=== PATIENT | male | born 1940 ===

== ENCOUNTER 2016-06-15 11:01 | Inpatient (IN) | payer OTHER, MEDICARE ==
[2016-06-15 11:26] LABS: BASO % 0.3 % (0-2); EOSINOPHIL ABSOLUTE COUNT 0.6 tho/cmm (0.0-0.7); HCT-HEMATOCRIT 31.5 % (36.0-53.5); HGB-HEMOGLOBIN 9.5 gm/dl (13.5-17.0); IMMATURE GRANULOCYTES ABSOLUTE 0.02 tho/cmm (0-0.03); IMMATURE GRANULOCYTES PERCENT 0.3 % (0-0.3); LYMPH % 21.7 % (20-45); LYMPH ABSOLUTE COUNT 1.6 tho/cmm (0.8-4.5); MCH (MEAN CORPUSCULAR HGB) 24.2 pg (28.0-32.0); MCHC MEAN CORPUSCULAR HGB CONC 30.2 % (32.0-36.0); MCV (MEAN CELL VOLUME) 80.4 fl (82.0-96.0); MEAN PLATELET VOLUME 9.5 cmc (9.4-12.4); MONO % 8.1 % (0-12); MONOCYTE ABSOLUTE COUNT 0.6 tho/cmm (0.0-1.2); NEUTROPHIL ABSOLUTE COUNT 4.6 tho/cmm (1.6-8.0); NEUTROPHIL-AUTOMATED 4.6 tho/cmm (1.6-8.0); NEUTROPHILS % 61.6 % (40-80); PLATELET COUNT 305 tho/cmm (150-450); RED BLOOD COUNT 3.92 mil/cmm (4.40-5.70); RED CELL DISTRIBUTION WIDTH 17.5 % (12.4-16.4); WHITE BLOOD COUNT 7.4 tho/cmm (4.0-10.0)
[2016-06-15 11:38] LABS: INR 1.8 INR (0.9-1.1); PROTHROMBIN TIME 21.6 SECONDS (9.0-13.6)
[2016-06-15 11:39] LABS: ALB/GLOB RATIO 0.8 (0.8-2.0); ALBUMIN 3.2 g/dl (3.5-5.2); ALKALINE PHOSPHATASE 95 U/L (40-129); ALT/SGPT 63 U/L (0-41); ANION GAP 12 mmol/L (5-15); AST/SGOT 30 U/L (0-40); BILIRUBIN,TOTAL 0.4 mg/dl (0.0-1.0); BLOOD UREA NITROGEN 15 mg/dl (6-25); CALCIUM 8.3 mg/dl (8.6-10.2); CARBON DIOXIDE-VENOUS 30 mmol/L (22-29); CHLORIDE 98 mmol/L (98-110); CREATININE 0.77 mg/dl (0.67-1.17); GLUCOSE 110 mg/dl (65-120); POTASSIUM 4.3 mmol/L (3.4-5.0); SODIUM 140 mmol/L (135-146); eGFR VALUE FOR BLACK >60 mL/Min
[2016-06-15 11:40] LABS: ABG CO2 ARTERIAL 34 mmol/L (21-27); ARTERIAL BLD GAS O2 SATURATION 96 % (95-98); ARTERIAL BLOOD GAS PCO2 49 mmHg (32-45); ARTERIAL PO2 79 mmHg (70-100); BICARBONATE 33 mmol/L (21-28); BLOOD GAS BASE EXCESS 8 mM/L (-/+3); PH 7.44 Units (7.35-7.45)
[2016-06-15] MEDS ORDERED: ACETAMINOPHEN325 M2 GT (12:04)
[2016-06-15] MEDS ORDERED: WARFARIN SODIUM3 M2 PO (12:08)
[2016-06-15] MEDS ORDERED: BISACODYL10 M1 RC ×2 (12:08)
[2016-06-15] MEDS ORDERED: CULTURELLE1 EAC1 GT (12:09)
[2016-06-15] MEDS ORDERED: COUGH SYRU100 MG/51 GT (12:10)
[2016-06-15] MEDS ORDERED: IPRAT-ALBUT 0.5-3 ML IH ×2 (12:12→12:13)
[2016-06-15 12:13] LABS: PROCALCITONIN 0.06 ng/ml (0.05-0.09)
[2016-06-15 12:21] LABS: URINE BILIRUBIN NEGATIVE (NEG); URINE BLOOD LARGE (NEG); URINE GLUCOSE (UA) NEGATIVE (NEG); URINE KETONE NEGATIVE (NEG); URINE LEUKOCYTE ESTERASE POSITIVE (NEG); URINE NITRITE NEGATIVE (NEG)
[2016-06-15 12:22] LABS: URINE APPEARANCE CLOUDY; URINE COLOR YELLOW; URINE SPECIFIC GRAVITY 1.021 (1.003-1.030)
[2016-06-15 12:29] LABS: URINE PROT SULFOSALICYLIC ACID TRACE (NEG); URINE RBC 20-30 /[HPF] (0-5); URINE WBC FULL FIELD /[HPF] (0-5)
[2016-06-15 12:30] LABS: URINE AMORPHOUS 3+; URINE MUCUS 3+
[2016-06-15] MEDS ORDERED: HUMALOG100 UNITS/ SC (12:31)
[2016-06-15] MEDS ORDERED: HYDROMORPHONE HC2 M1 GT (12:33)
[2016-06-15] MEDS ORDERED: MILK OF MAGNESIA GT (12:34)
[2016-06-15] MEDS ORDERED: LEVETIRACETAM GT (12:34)
[2016-06-15] MEDS ORDERED: ONDANSETRON ODT4 M1 GT (12:35)
[2016-06-15] MEDS ORDERED: PRILOSEC10 M3 GT (12:36)
[2016-06-15] MEDS ORDERED: SENNA PLUS TAB1 EAC1 GT (12:37)
[2016-06-15] MEDS ORDERED: EPINEPHRINE (12:42)
[2016-06-15] MEDS ORDERED: GLYCERIN1 EAC1 PR (12:44)
[2016-06-15] MEDS ORDERED: SANTYL30 G1 TP (12:44)
[2016-06-15] MEDS ORDERED: TRAMADOL HCL50 M2 GT (12:45)
[2016-06-15] MEDS ORDERED: SALINE NASAL SP30 M1 (12:45)
[2016-06-15] MEDS ORDERED: WARFARIN SODIUM5 M2 PO (12:47)
[2016-06-15] MEDS ORDERED: BISAC-EVAC10 MG RC (13:13)
[2016-06-17 06:37] LABS: BASO % 0.2 % (0-2); EOS % 5.9 % (0-7); EOSINOPHIL ABSOLUTE COUNT 0.3 tho/cmm (0.0-0.7); HCT-HEMATOCRIT 27.7 % (36.0-53.5); HGB-HEMOGLOBIN 8.4 gm/dl (13.5-17.0); IMMATURE GRANULOCYTES ABSOLUTE 0.01 tho/cmm (0-0.03); IMMATURE GRANULOCYTES PERCENT 0.2 % (0-0.3); LYMPH % 12.3 % (20-45); LYMPH ABSOLUTE COUNT 0.7 tho/cmm (0.8-4.5); MCH (MEAN CORPUSCULAR HGB) 24.4 pg (28.0-32.0); MCHC MEAN CORPUSCULAR HGB CONC 30.3 % (32.0-36.0); MCV (MEAN CELL VOLUME) 80.5 fl (82.0-96.0); MONO % 5.5 % (0-12); MONOCYTE ABSOLUTE COUNT 0.3 tho/cmm (0.0-1.2); NEUTROPHIL ABSOLUTE COUNT 4.3 tho/cmm (1.6-8.0); NEUTROPHIL-AUTOMATED 4.3 tho/cmm (1.6-8.0); NEUTROPHILS % 75.9 % (40-80); PLATELET COUNT 257 tho/cmm (150-450); RED BLOOD COUNT 3.44 mil/cmm (4.40-5.70); RED CELL DISTRIBUTION WIDTH 17.2 % (12.4-16.4); WHITE BLOOD COUNT 5.6 tho/cmm (4.0-10.0)
[2016-06-17 07:06] LABS: ANION GAP 12 mmol/L (5-15); BLOOD UREA NITROGEN 9 mg/dl (6-25); CALCIUM 8.2 mg/dl (8.6-10.2); CARBON DIOXIDE-VENOUS 26 mmol/L (22-29); CHLORIDE 106 mmol/L (98-110); GLUCOSE 106 mg/dl (65-120); POTASSIUM 3.8 mmol/L (3.4-5.0); SODIUM 144 mmol/L (135-146); eGFR VALUE FOR BLACK >60 mL/Min
[2016-06-17 07:11] LABS: INR 3.3 INR (0.9-1.1); PROTHROMBIN TIME 39.5 SECONDS (9.0-13.6)
[2016-06-18 05:52] LABS: BASO % 0.3 % (0-2); EOS % 8.8 % (0-7); EOSINOPHIL ABSOLUTE COUNT 0.3 tho/cmm (0.0-0.7); HCT-HEMATOCRIT 28.2 % (36.0-53.5); HGB-HEMOGLOBIN 8.4 gm/dl (13.5-17.0); IMMATURE GRANULOCYTES ABSOLUTE 0.01 tho/cmm (0-0.03); IMMATURE GRANULOCYTES PERCENT 0.3 % (0-0.3); LYMPH % 23.7 % (20-45); LYMPH ABSOLUTE COUNT 0.8 tho/cmm (0.8-4.5); MCH (MEAN CORPUSCULAR HGB) 24.2 pg (28.0-32.0); MCHC MEAN CORPUSCULAR HGB CONC 29.8 % (32.0-36.0); MCV (MEAN CELL VOLUME) 81.3 fl (82.0-96.0); MONO % 9.4 % (0-12); MONOCYTE ABSOLUTE COUNT 0.3 tho/cmm (0.0-1.2); NEUTROPHIL ABSOLUTE COUNT 1.9 tho/cmm (1.6-8.0); NEUTROPHIL-AUTOMATED 1.9 tho/cmm (1.6-8.0); NEUTROPHILS % 57.5 % (40-80); PLATELET COUNT 250 tho/cmm (150-450); RED BLOOD COUNT 3.47 mil/cmm (4.40-5.70); RED CELL DISTRIBUTION WIDTH 17.3 % (12.4-16.4); WHITE BLOOD COUNT 3.3 tho/cmm (4.0-10.0)
[2016-06-18 06:09] LABS: INR 3.7 INR (0.9-1.1); PROTHROMBIN TIME 44.3 SECONDS (9.0-13.6)
[2016-06-18 06:12] LABS: ANION GAP 11 mmol/L (5-15); BLOOD UREA NITROGEN 7 mg/dl (6-25); CALCIUM 8.2 mg/dl (8.6-10.2); CARBON DIOXIDE-VENOUS 26 mmol/L (22-29); CHLORIDE 115 mmol/L (98-110); CREATININE 0.61 mg/dl (0.67-1.17); GLUCOSE 138 mg/dl (65-120); POTASSIUM 3.5 mmol/L (3.4-5.0); eGFR VALUE FOR BLACK >60 mL/Min
[2016-06-18 06:15] LABS: SODIUM 152 mmol/L (135-146)
[2016-06-19 05:48] LABS: BASO % 0.2 % (0-2); EOS % 6.6 % (0-7); EOSINOPHIL ABSOLUTE COUNT 0.3 tho/cmm (0.0-0.7); HGB-HEMOGLOBIN 8.4 gm/dl (13.5-17.0); IMMATURE GRANULOCYTES ABSOLUTE 0.01 tho/cmm (0-0.03); IMMATURE GRANULOCYTES PERCENT 0.2 % (0-0.3); LYMPH % 20.4 % (20-45); LYMPH ABSOLUTE COUNT 0.8 tho/cmm (0.8-4.5); MCH (MEAN CORPUSCULAR HGB) 23.7 pg (28.0-32.0); MCV (MEAN CELL VOLUME) 81.9 fl (82.0-96.0); MONO % 6.1 % (0-12); MONOCYTE ABSOLUTE COUNT 0.3 tho/cmm (0.0-1.2); NEUTROPHIL ABSOLUTE COUNT 2.7 tho/cmm (1.6-8.0); NEUTROPHIL-AUTOMATED 2.7 tho/cmm (1.6-8.0); NEUTROPHILS % 66.5 % (40-80); PLATELET COUNT 269 tho/cmm (150-450); RED BLOOD COUNT 3.54 mil/cmm (4.40-5.70); RED CELL DISTRIBUTION WIDTH 17.5 % (12.4-16.4); WHITE BLOOD COUNT 4.1 tho/cmm (4.0-10.0)
[2016-06-19 06:01] LABS: ANION GAP 10 mmol/L (5-15); BLOOD UREA NITROGEN 8 mg/dl (6-25); CARBON DIOXIDE-VENOUS 30 mmol/L (22-29); CHLORIDE 115 mmol/L (98-110); CREATININE 0.64 mg/dl (0.67-1.17); GLUCOSE 135 mg/dl (65-120); POTASSIUM 3.2 mmol/L (3.4-5.0); SODIUM 155 mmol/L (135-146); eGFR VALUE FOR BLACK >60 mL/Min
[2016-06-20 06:18] LABS: ANION GAP 9 mmol/L (5-15); BLOOD UREA NITROGEN 11 mg/dl (6-25); CALCIUM 8.2 mg/dl (8.6-10.2); CARBON DIOXIDE-VENOUS 33 mmol/L (22-29); CHLORIDE 110 mmol/L (98-110); CREATININE 0.73 mg/dl (0.67-1.17); GLUCOSE 137 mg/dl (65-120); POTASSIUM 3.3 mmol/L (3.4-5.0); SODIUM 152 mmol/L (135-146); eGFR VALUE FOR BLACK >60 mL/Min
[2016-06-20 06:31] LABS: PROTHROMBIN TIME 25.7 SECONDS (9.0-13.6)
[2016-06-20 06:32] LABS: INR 2.2 INR (0.9-1.1)
[2016-06-21 11:02] LABS: BASO % 0.2 % (0-2); EOS % 6.4 % (0-7); EOSINOPHIL ABSOLUTE COUNT 0.4 tho/cmm (0.0-0.7); HCT-HEMATOCRIT 29.5 % (36.0-53.5); HGB-HEMOGLOBIN 8.7 gm/dl (13.5-17.0); IMMATURE GRANULOCYTES ABSOLUTE 0.02 tho/cmm (0-0.03); IMMATURE GRANULOCYTES PERCENT 0.3 % (0-0.3); LYMPH % 19.6 % (20-45); LYMPH ABSOLUTE COUNT 1.2 tho/cmm (0.8-4.5); MCH (MEAN CORPUSCULAR HGB) 24.2 pg (28.0-32.0); MCHC MEAN CORPUSCULAR HGB CONC 29.5 % (32.0-36.0); MCV (MEAN CELL VOLUME) 82.2 fl (82.0-96.0); MEAN PLATELET VOLUME 9.5 cmc (9.4-12.4); MONO % 5.2 % (0-12); MONOCYTE ABSOLUTE COUNT 0.3 tho/cmm (0.0-1.2); NEUTROPHIL ABSOLUTE COUNT 4.2 tho/cmm (1.6-8.0); NEUTROPHIL-AUTOMATED 4.2 tho/cmm (1.6-8.0); NEUTROPHILS % 68.3 % (40-80); PLATELET COUNT 247 tho/cmm (150-450); RED BLOOD COUNT 3.59 mil/cmm (4.40-5.70); RED CELL DISTRIBUTION WIDTH 18.2 % (12.4-16.4); WHITE BLOOD COUNT 6.1 tho/cmm (4.0-10.0)
[2016-06-21 11:15] LABS: ANION GAP 7 mmol/L (5-15); BLOOD UREA NITROGEN 12 mg/dl (6-25); CALCIUM 8.6 mg/dl (8.6-10.2); CARBON DIOXIDE-VENOUS 33 mmol/L (22-29); CHLORIDE 111 mmol/L (98-110); CREATININE 0.67 mg/dl (0.67-1.17); GLUCOSE 148 mg/dl (65-120); POTASSIUM 3.7 mmol/L (3.4-5.0); SODIUM 151 mmol/L (135-146); eGFR VALUE FOR BLACK >60 mL/Min
[2016-06-23 05:47] LABS: INR 1.2 INR (0.9-1.1)
[2016-06-23] MEDS ORDERED: SENNA PO (07:52)
[2016-06-23] MEDS ORDERED: FAMOTIDINE20 M3 PO (07:53)
[2016-06-24 06:18] LABS: INR 1.2 INR (0.9-1.1); PROTHROMBIN TIME 14.4 SECONDS (9.0-13.6)
[2016-06-25 06:52] LABS: INR 1.4 INR (0.9-1.1)
[2016-06-26 05:58] LABS: INR 1.5 INR (0.9-1.1); PROTHROMBIN TIME 18.2 SECONDS (9.0-13.6)
--- NOTE | 2016-06-26 16:23 | NUR ---
REG, RN CALLED TO INDICATE THAT PT'S FAMILY WAS HERE AND VERY UPSET. FAMILY ASKED WHY PT DIDN'T HAVE HIS HEARING AIDS IN. NO HEARING AIDS LISTED ON PT BELONGING LIST FROM ADMISSION. PER PCU NURSE WHO TRANSFERRED PT 06/25, PT HAD NO HEARING AIDS IN. NOTIFIED FAMILY THAT PT DID NOT COME TO HOSPITAL WITH HEARING AIDS. PT'S BROTHER VERBALIZED UNDERSTANDING AND STATED THAT HE WOULD CHECK AT THE PREVIOUS FACILITY. PT'S NIECE GURDEEP ASKED ABOUT ISOLATION, TOOK PICTURES OF ISOLATION AIRPORT MAINTENANCE CHIEF AND OTHER ITEMS IN THE PT'S ROOM. NIECE STATED THAT IF PT HAD HIS HEARING AIDS HE WOULD BE ABLE TO WAKE UP. ASKED NIECE IF SHE HAD BEEN IN CONTACT WITH DASH, PT'S DTR AND POA. SHE SAID SHE HAD NOT, AND WE ADVISED HER TO CONTACT DASH, WHO HAD BEEN IN DISCUSSIONS WITH HOSPITAL SOCIAL WORKERS ABOUT PT'S STAY AND TRANSFER TO ANOTHER FACILITY. NIAIDAN ASKED WHY PT WAS IN THE HOSPITAL, AND WE STATED THAT HE CAME IN WITH A FEVER ON 06/15. NIECE ASKED IF ANYONE AT THIS FACILITY WAS GOING TO MAKE PT STOP BREATHING BY COVERING HIS FACE. SHE EXPRESSED CONCERN THAT HE MIGHT TRANSFER TO A FACILITY WHERE THAT WAS PERMITTED. WE REASSURED HER VERY CLEARLY THAT SUCH ACTIONS WERE ILLEGAL AND NOT PERMITTED AT THIS OR ANY OTHER FACILITY. I EXPLAINED IN GENERAL TERMS HOW A CODE STATUS OF DNR DIFFERED FROM THE ACTIVE HASTENING OF THAT SHE WAS DESCRIBING. SHE AGAIN STATED THAT SHE BELIEVED HE WOULD WAKE UP AND ASKED US WHETHER WE THOUGHT THAT WAS POSSIBLE. I TOLD HER THAT IT WAS IMPOSSIBLE TO SAY WITH CERTAINTY. WHEN SHE PRESSED THE ISSUE, I POINTED OUT THAT GIVEN HOW LONG HE HAD BEEN IN THIS CONDITION, WAKING UP WAS NOT LIKELY. SHE STATED, "GOD DOES MIRACLES EVERY DAY." WE AGREED AND ADVISED HER TO MAINTAIN HOPE AND TO BE PREPARED FOR ANY OUTCOME. WE EXPRESSED SYMPATHY FOR THE DIFFICULT SITUATION IN WHICH SHE AND HER FAMILY FOUND THEMSELVES. SHE STATED THAT SHE DIDN'T WANT TO IMPLY THAT ANYONE HERE WAS NOT PROVIDING GOOD CARE. WE AGAIN ADVISED HER TO CONTACT DASH FOR MORE DETAILS.
--- NOTE | 2016-06-26 18:12 | NUR ---
THE PATIENT HAD BEEN TRANSFERRED FROM [facility] TO [facility] ON 06/25 IN THE AFTERNOON. NO FAMILY WAS PRESENT ON PCU WITH THE PATIENT AND NO FAMILY OR VISITORS WERE PRESENT ON 06/25 ON [facility]. ON 06/26 AROUND 1500 THE PATIENT'S BROTHER, TOMMIE AND FRIEND GURDEEP CAME TO VISIT. UPON VISITING THEY ENTERED THE PATIENT'S ROOM AND WERE VERY UPSET THAT THE PATIENT DID NOT HAVE HEARING AIDS IN. THERE IS DOCUMENTATION IN THE CHART THAT THE PATIENT DID NOT COME WITH ANY BELONGINGS. THIS WAS EXPLAINED TO THE PATIENT'S VISITORS. TOMMIE LEFT AND RETURNED WITH THE PATIENT'S BELONGINGS AND HEARING AIDES WHILE GURDEEP STAYED AT THE BEDSIDE. THE PATIENT IS IN A VEGETATIVE STATE AND ACCORDING TO THE DOCTORS HE IS NOT LIKELY TO WAKE UP. SOME OF THE PATIENT'S FAMILY BELIEVE THE PATIENT IS GOING TO WAKE UP. GURDEEP WAS AT THE BEDSIDE YELLING AT THE PATIENT TELLING HIM TO WAKE UP. SHE THEN STARTED TAKING PICTURES OF STUFF IN THE PATIENT'S ROOM AND WAS YELLING AT STAFF AND ACCUSSING US OF LOSING HIS BELONGINGS. WE TRIED TO EXPLAIN TO GURDEEP THAT THE PATIENT IS NOT IN DISTRESS AND THAT IS WHY WE ARE NOT GIVING HIM SCHEDULED PAIN MEDS. SHE THEN PROCEEDED TO TRY AND STRAIGHTEN THE PATIENT'S FINGER ON THE R HAND THAT SHE TOLD US WERE OBOVIOUSLY BROKEN AND WE NEEDED TO XRAY THEM RIGHT AWAY. WE EXPLAINED TO GURDEEP THAT WE WILL TALK WITH THE DOCTOR ON HER CONCERNS ABOUT PAIN MEDICATION AND HIS FINGER. GURDEEP AND TOMMIE LEFT FOR DINNER AND I CALLED THE POA, DASH, AND DISCUSSED THE SITUATION. SHE TOLD ME THAT GURDEEP CAN VISIT WITH TOMMIE BUT THEY CANNOT MAKE ANY DECISIONS FOR THE PATIENT. DASH ALSO SAID THAT IF GURDEEP IS DISRUPTIVE SHE NEEDS TO LEAVE. SECURITY WAS NOTIFIED AND TALKED WITH TOMMIE AND GURDEEP. THEY THEN LEFT AND TOLD ME THEY WERE NOT COMING BACK AND WERE VERY UPSET.
[2016-06-27 06:01] LABS: INR 1.7 INR (0.9-1.1); PROTHROMBIN TIME 20.3 SECONDS (9.0-13.6)
[2016-06-27 06:14] LABS: ANION GAP 11 mmol/L (5-15); BLOOD UREA NITROGEN 16 mg/dl (6-25); CARBON DIOXIDE-VENOUS 30 mmol/L (22-29); CHLORIDE 101 mmol/L (98-110); CREATININE 0.59 mg/dl (0.67-1.17); GLUCOSE 111 mg/dl (65-120); POTASSIUM 4.3 mmol/L (3.4-5.0); SODIUM 142 mmol/L (135-146); eGFR VALUE FOR BLACK >60 mL/Min
--- NOTE | 2016-06-27 19:01 | NUR ---
VIRTUAL CARE NOTES: ASSESMENT DEFERRED. PT. SLEEPING.
--- NOTE | 2016-06-27 19:01 | NUR ---
VIRTUAL CARE NOTE: ASSESSMENT DEFERRED, PT. SLEEPING.
[2016-06-28 06:26] LABS: INR 1.9 INR (0.9-1.1); PROTHROMBIN TIME 22.3 SECONDS (9.0-13.6)
--- NOTE | 2016-06-28 19:47 | NUR ---
VIRTUAL CARE NOTE: ASSESSMENT DEFERRED. PT. SLEEPING.
[2016-06-29 04:55] LABS: INR 2.3 INR (0.9-1.1); PROTHROMBIN TIME 27.1 SECONDS (9.0-13.6)
[2016-06-29 23:25] LABS: PHOSPHOROUS 3.6 mg/dl (2.7-4.5); TSH-THYROID STIMULATING HORM. 1.67 uIU/ml (0.40-5.50)
[2016-06-30 06:13] LABS: INR 2.6 INR (0.9-1.1); PROTHROMBIN TIME 31.1 SECONDS (9.0-13.6)
[2016-07-01 06:39] LABS: INR 3.4 INR (0.9-1.1); PROTHROMBIN TIME 41.4 SECONDS (9.0-13.6)
[2016-07-02 06:15] LABS: INR 3.2 INR (0.9-1.1); PROTHROMBIN TIME 38.1 SECONDS (9.0-13.6)
--- NOTE | 2016-07-02 20:00 | NUR ---
VIRTUAL CARE NOTE: ASSESSMENT DEFERRED. PT. SLEEPING.
[2016-07-03 05:56] LABS: INR 2.4 INR (0.9-1.1); PROTHROMBIN TIME 28.7 SECONDS (9.0-13.6)
--- NOTE | 2016-07-03 19:59 | NUR ---
VIRTUAL CARE NOTE: ASSESSMENT DEFERRED. PT. SLEEPING.
[2016-07-04 06:10] LABS: PROTHROMBIN TIME 23.2 SECONDS (9.0-13.6)
[2016-07-05 05:37] LABS: PROTHROMBIN TIME 23.1 SECONDS (9.0-13.6)
[2016-07-06 05:25] LABS: INR 1.9 INR (0.9-1.1); PROTHROMBIN TIME 22.5 SECONDS (9.0-13.6)
[2016-07-06 10:32] LABS: BASO % 0.2 % (0-2); EOS % 5.2 % (0-7); EOSINOPHIL ABSOLUTE COUNT 0.3 tho/cmm (0.0-0.7); HCT-HEMATOCRIT 31.6 % (36.0-53.5); HGB-HEMOGLOBIN 9.5 gm/dl (13.5-17.0); IMMATURE GRANULOCYTES ABSOLUTE 0.02 tho/cmm (0-0.03); IMMATURE GRANULOCYTES PERCENT 0.3 % (0-0.3); LYMPH % 23.7 % (20-45); LYMPH ABSOLUTE COUNT 1.5 tho/cmm (0.8-4.5); MCH (MEAN CORPUSCULAR HGB) 23.9 pg (28.0-32.0); MCHC MEAN CORPUSCULAR HGB CONC 30.1 % (32.0-36.0); MCV (MEAN CELL VOLUME) 79.4 fl (82.0-96.0); MEAN PLATELET VOLUME 9.6 cmc (9.4-12.4); MONO % 9.7 % (0-12); MONOCYTE ABSOLUTE COUNT 0.6 tho/cmm (0.0-1.2); NEUTROPHILS % 60.9 % (40-80); PLATELET COUNT 234 tho/cmm (150-450); RED BLOOD COUNT 3.98 mil/cmm (4.40-5.70); RED CELL DISTRIBUTION WIDTH 17.8 % (12.4-16.4); WHITE BLOOD COUNT 6.5 tho/cmm (4.0-10.0)
[2016-07-06 10:54] LABS: ANION GAP 10 mmol/L (5-15); BLOOD UREA NITROGEN 18 mg/dl (6-25); CALCIUM 8.9 mg/dl (8.6-10.2); CARBON DIOXIDE-VENOUS 32 mmol/L (22-29); CHLORIDE 96 mmol/L (98-110); CREATININE 0.72 mg/dl (0.67-1.17); GLUCOSE 130 mg/dl (65-120); POTASSIUM 4.6 mmol/L (3.4-5.0); SODIUM 138 mmol/L (135-146); eGFR VALUE FOR BLACK >60 mL/Min
[2016-07-07 06:04] LABS: INR 1.9 INR (0.9-1.1); PROTHROMBIN TIME 22.5 SECONDS (9.0-13.6)
[2016-07-08 06:00] LABS: EOS % 7.4 % (0-7); EOSINOPHIL ABSOLUTE COUNT 0.4 tho/cmm (0.0-0.7); HCT-HEMATOCRIT 30.3 % (36.0-53.5); HGB-HEMOGLOBIN 9.2 gm/dl (13.5-17.0); IMMATURE GRANULOCYTES ABSOLUTE 0.05 tho/cmm (0-0.03); IMMATURE GRANULOCYTES PERCENT 0.9 % (0-0.3); LYMPH % 21.9 % (20-45); LYMPH ABSOLUTE COUNT 1.2 tho/cmm (0.8-4.5); MCH (MEAN CORPUSCULAR HGB) 23.8 pg (28.0-32.0); MCHC MEAN CORPUSCULAR HGB CONC 30.4 % (32.0-36.0); MCV (MEAN CELL VOLUME) 78.5 fl (82.0-96.0); MEAN PLATELET VOLUME 9.6 cmc (9.4-12.4); MONO % 11.6 % (0-12); MONOCYTE ABSOLUTE COUNT 0.6 tho/cmm (0.0-1.2); NEUTROPHIL ABSOLUTE COUNT 3.2 tho/cmm (1.6-8.0); NEUTROPHIL-AUTOMATED 3.2 tho/cmm (1.6-8.0); NEUTROPHILS % 58.2 % (40-80); PLATELET COUNT 188 tho/cmm (150-450); RED BLOOD COUNT 3.86 mil/cmm (4.40-5.70); RED CELL DISTRIBUTION WIDTH 17.8 % (12.4-16.4); WHITE BLOOD COUNT 5.5 tho/cmm (4.0-10.0)
[2016-07-08 06:05] LABS: INR 1.6 INR (0.9-1.1); PROTHROMBIN TIME 19.3 SECONDS (9.0-13.6)
[2016-07-08 06:17] LABS: ANION GAP 11 mmol/L (5-15); BLOOD UREA NITROGEN 17 mg/dl (6-25); CALCIUM 8.4 mg/dl (8.6-10.2); CARBON DIOXIDE-VENOUS 31 mmol/L (22-29); CHLORIDE 94 mmol/L (98-110); CREATININE 0.68 mg/dl (0.67-1.17); GLUCOSE 134 mg/dl (65-120); POTASSIUM 4.3 mmol/L (3.4-5.0); SODIUM 136 mmol/L (135-146); eGFR VALUE FOR BLACK >60 mL/Min
--- NOTE | 2016-07-08 15:30 | NUR ---
VIRTUAL CARE NOTE: PT STATUS DISCUSSED W/ ALEXANDREA RN, CXR RESULTS REVIEWED. VN WILL CONTINUE TO MONITOR RECORD AND FOLLOW W/ PT
[2016-07-08 17:08] LABS: ABG CO2 ARTERIAL 30 mmol/L (21-27); ARTERIAL BLD GAS O2 SATURATION 86 % (95-98); ARTERIAL BLOOD GAS PCO2 39 mmHg (32-45); ARTERIAL PO2 51 mmHg (70-100); BICARBONATE 29 mmol/L (21-28); BLOOD GAS BASE EXCESS 5 mM/L (-/+3); PH 7.48 Units (7.35-7.45)
[2016-07-08 17:12] LABS: BASO % 0.1 % (0-2); EOSINOPHIL ABSOLUTE COUNT 0.3 tho/cmm (0.0-0.7); HCT-HEMATOCRIT 32.3 % (36.0-53.5); IMMATURE GRANULOCYTES ABSOLUTE 0.04 tho/cmm (0-0.03); IMMATURE GRANULOCYTES PERCENT 0.5 % (0-0.3); LYMPH % 22.8 % (20-45); LYMPH ABSOLUTE COUNT 1.9 tho/cmm (0.8-4.5); MCH (MEAN CORPUSCULAR HGB) 24.2 pg (28.0-32.0); MCV (MEAN CELL VOLUME) 78.2 fl (82.0-96.0); MEAN PLATELET VOLUME 9.1 cmc (9.4-12.4); MONO % 4.6 % (0-12); MONOCYTE ABSOLUTE COUNT 0.4 tho/cmm (0.0-1.2); NEUTROPHIL ABSOLUTE COUNT 5.8 tho/cmm (1.6-8.0); PLATELET COUNT 198 tho/cmm (150-450); RED BLOOD COUNT 4.13 mil/cmm (4.40-5.70); RED CELL DISTRIBUTION WIDTH 17.9 % (12.4-16.4)
[2016-07-08 17:28] LABS: ALB/GLOB RATIO 0.9 (0.8-2.0); ALBUMIN 3.9 g/dl (3.5-5.2); ALKALINE PHOSPHATASE 115 U/L (40-129); ALT/SGPT 43 U/L (0-41); ANION GAP 14 mmol/L (5-15); AST/SGOT 18 U/L (0-40); BILIRUBIN,TOTAL 0.5 mg/dl (0.0-1.0); BLOOD UREA NITROGEN 21 mg/dl (6-25); CALCIUM 8.6 mg/dl (8.6-10.2); CARBON DIOXIDE-VENOUS 29 mmol/L (22-29); CHLORIDE 91 mmol/L (98-110); CREATININE 0.92 mg/dl (0.67-1.17); GLUCOSE 115 mg/dl (65-120); POTASSIUM 4.6 mmol/L (3.4-5.0); SODIUM 134 mmol/L (135-146); eGFR VALUE FOR BLACK >60 mL/Min
[2016-07-08 17:32] LABS: NEUTROPHIL-AUTOMATED 5.8 tho/cmm (1.6-8.0); WHITE BLOOD COUNT 8.5 tho/cmm (4.0-10.0)
[2016-07-08 18:54] LABS: INR 1.6 INR (0.9-1.1); PROTHROMBIN TIME 18.3 SECONDS (9.0-13.6)
[2016-07-08 19:25] LABS: PROCALCITONIN 0.11 ng/ml (0.05-0.09)
[2016-07-09 06:34] LABS: INR 1.6 INR (0.9-1.1); PROTHROMBIN TIME 18.3 SECONDS (9.0-13.6)
[2016-07-10 05:50] LABS: BASO % 0.2 % (0-2); EOS % 8.2 % (0-7); EOSINOPHIL ABSOLUTE COUNT 0.4 tho/cmm (0.0-0.7); HCT-HEMATOCRIT 28.3 % (36.0-53.5); HGB-HEMOGLOBIN 8.4 gm/dl (13.5-17.0); IMMATURE GRANULOCYTES ABSOLUTE 0.01 tho/cmm (0-0.03); IMMATURE GRANULOCYTES PERCENT 0.2 % (0-0.3); LYMPH % 15.8 % (20-45); LYMPH ABSOLUTE COUNT 0.7 tho/cmm (0.8-4.5); MCH (MEAN CORPUSCULAR HGB) 23.9 pg (28.0-32.0); MCHC MEAN CORPUSCULAR HGB CONC 29.7 % (32.0-36.0); MCV (MEAN CELL VOLUME) 80.6 fl (82.0-96.0); MEAN PLATELET VOLUME 9.1 cmc (9.4-12.4); MONOCYTE ABSOLUTE COUNT 0.5 tho/cmm (0.0-1.2); NEUTROPHILS % 65.6 % (40-80); PLATELET COUNT 160 tho/cmm (150-450); RED BLOOD COUNT 3.51 mil/cmm (4.40-5.70); RED CELL DISTRIBUTION WIDTH 18.3 % (12.4-16.4); WHITE BLOOD COUNT 4.6 tho/cmm (4.0-10.0)
[2016-07-10 05:53] LABS: INR 1.7 INR (0.9-1.1); PROTHROMBIN TIME 20.3 SECONDS (9.0-13.6)
[2016-07-10 06:13] LABS: ANION GAP 7 mmol/L (5-15); BLOOD UREA NITROGEN 13 mg/dl (6-25); CALCIUM 8.2 mg/dl (8.6-10.2); CARBON DIOXIDE-VENOUS 32 mmol/L (22-29); CHLORIDE 107 mmol/L (98-110); CREATININE 0.64 mg/dl (0.67-1.17); GLUCOSE 160 mg/dl (65-120); eGFR VALUE FOR BLACK >60 mL/Min
[2016-07-10 06:15] LABS: SODIUM 146 mmol/L (135-146)
--- NOTE | 2016-07-10 16:20 | NUR ---
SEE CCU VITAL FLOW SHEET FOR VITALS
[2016-07-11 06:19] LABS: BASO % 0.2 % (0-2); EOS % 5.4 % (0-7); EOSINOPHIL ABSOLUTE COUNT 0.3 tho/cmm (0.0-0.7); HCT-HEMATOCRIT 28.5 % (36.0-53.5); HGB-HEMOGLOBIN 8.4 gm/dl (13.5-17.0); IMMATURE GRANULOCYTES ABSOLUTE 0.02 tho/cmm (0-0.03); IMMATURE GRANULOCYTES PERCENT 0.4 % (0-0.3); LYMPH ABSOLUTE COUNT 1.1 tho/cmm (0.8-4.5); MCH (MEAN CORPUSCULAR HGB) 23.7 pg (28.0-32.0); MCHC MEAN CORPUSCULAR HGB CONC 29.5 % (32.0-36.0); MCV (MEAN CELL VOLUME) 80.3 fl (82.0-96.0); MEAN PLATELET VOLUME 9.2 cmc (9.4-12.4); MONO % 6.3 % (0-12); MONOCYTE ABSOLUTE COUNT 0.4 tho/cmm (0.0-1.2); NEUTROPHIL ABSOLUTE COUNT 3.9 tho/cmm (1.6-8.0); NEUTROPHIL-AUTOMATED 3.9 tho/cmm (1.6-8.0); NEUTROPHILS % 68.7 % (40-80); PLATELET COUNT 197 tho/cmm (150-450); RED BLOOD COUNT 3.55 mil/cmm (4.40-5.70); RED CELL DISTRIBUTION WIDTH 18.7 % (12.4-16.4); WHITE BLOOD COUNT 5.6 tho/cmm (4.0-10.0)
[2016-07-11 06:24] LABS: INR 1.9 INR (0.9-1.1); PROTHROMBIN TIME 22.8 SECONDS (9.0-13.6)
[2016-07-11 06:33] LABS: ANION GAP 8 mmol/L (5-15); BLOOD UREA NITROGEN 12 mg/dl (6-25); CALCIUM 8.2 mg/dl (8.6-10.2); CARBON DIOXIDE-VENOUS 30 mmol/L (22-29); CHLORIDE 107 mmol/L (98-110); CREATININE 0.79 mg/dl (0.67-1.17); GLUCOSE 141 mg/dl (65-120); POTASSIUM 4.2 mmol/L (3.4-5.0); SODIUM 145 mmol/L (135-146); eGFR VALUE FOR BLACK >60 mL/Min
[2016-07-12 06:55] LABS: INR 1.7 INR (0.9-1.1); PROTHROMBIN TIME 20.2 SECONDS (9.0-13.6)
[2016-07-13 05:01] LABS: INR 1.7 INR (0.9-1.1); PROTHROMBIN TIME 20.3 SECONDS (9.0-13.6)
[2016-07-14 06:22] LABS: HCT-HEMATOCRIT 29.8 % (36.0-53.5); HGB-HEMOGLOBIN 8.7 gm/dl (13.5-17.0); MCV (MEAN CELL VOLUME) 81.4 fl (82.0-96.0); PLATELET COUNT 188 tho/cmm (150-450); RED CELL DISTRIBUTION WIDTH 18.8 % (12.4-16.4)
[2016-07-14 06:24] LABS: INR 2.3 INR (0.9-1.1)
[2016-07-14 06:57] LABS: BLOOD UREA NITROGEN 14 mg/dl (6-25); CREATININE 0.76 mg/dl (0.67-1.17); eGFR VALUE FOR BLACK >60 mL/Min
[2016-07-14 07:11] LABS: PROTHROMBIN TIME 26.8 SECONDS (9.0-13.6)
[2016-07-15 06:27] LABS: INR 2.1 INR (0.9-1.1); PROTHROMBIN TIME 24.7 SECONDS (9.0-13.6)
[2016-07-16 06:16] LABS: INR 2.2 INR (0.9-1.1); PROTHROMBIN TIME 26.1 SECONDS (9.0-13.6)
[2016-07-17 07:01] LABS: INR 2.2 INR (0.9-1.1); PROTHROMBIN TIME 26.3 SECONDS (9.0-13.6)
[2016-07-18 05:57] LABS: INR 2.3 INR (0.9-1.1); PROTHROMBIN TIME 26.9 SECONDS (9.0-13.6)
[2016-07-19 06:03] LABS: INR 2.2 INR (0.9-1.1); PROTHROMBIN TIME 26.6 SECONDS (9.0-13.6)
[2016-07-20 06:36] LABS: INR 2.2 INR (0.9-1.1); PROTHROMBIN TIME 25.9 SECONDS (9.0-13.6)
[2016-07-22 06:11] LABS: BASO % 0.2 % (0-2); EOS % 5.4 % (0-7); EOSINOPHIL ABSOLUTE COUNT 0.3 tho/cmm (0.0-0.7); HCT-HEMATOCRIT 31.6 % (36.0-53.5); HGB-HEMOGLOBIN 9.5 gm/dl (13.5-17.0); IMMATURE GRANULOCYTES ABSOLUTE 0.01 tho/cmm (0-0.03); IMMATURE GRANULOCYTES PERCENT 0.2 % (0-0.3); LYMPH % 28.7 % (20-45); LYMPH ABSOLUTE COUNT 1.4 tho/cmm (0.8-4.5); MCH (MEAN CORPUSCULAR HGB) 23.8 pg (28.0-32.0); MCHC MEAN CORPUSCULAR HGB CONC 30.1 % (32.0-36.0); MCV (MEAN CELL VOLUME) 79.2 fl (82.0-96.0); MEAN PLATELET VOLUME 9.5 cmc (9.4-12.4); MONO % 7.4 % (0-12); MONOCYTE ABSOLUTE COUNT 0.4 tho/cmm (0.0-1.2); NEUTROPHIL ABSOLUTE COUNT 2.9 tho/cmm (1.6-8.0); NEUTROPHIL-AUTOMATED 2.9 tho/cmm (1.6-8.0); NEUTROPHILS % 58.1 % (40-80); PLATELET COUNT 279 tho/cmm (150-450); RED BLOOD COUNT 3.99 mil/cmm (4.40-5.70); RED CELL DISTRIBUTION WIDTH 18.3 % (12.4-16.4)
[2016-07-22 06:12] LABS: INR 2.3 INR (0.9-1.1); PROTHROMBIN TIME 27.7 SECONDS (9.0-13.6)
[2016-07-22 06:25] LABS: ANION GAP 12 mmol/L (5-15); BLOOD UREA NITROGEN 16 mg/dl (6-25); CALCIUM 8.7 mg/dl (8.6-10.2); CARBON DIOXIDE-VENOUS 28 mmol/L (22-29); CHLORIDE 97 mmol/L (98-110); CREATININE 0.61 mg/dl (0.67-1.17); GLUCOSE 104 mg/dl (65-120); POTASSIUM 4.1 mmol/L (3.4-5.0); SODIUM 137 mmol/L (135-146); eGFR VALUE FOR BLACK >60 mL/Min
[2016-07-24 05:41] LABS: INR 2.6 INR (0.9-1.1); PROTHROMBIN TIME 31.1 SECONDS (9.0-13.6)
[2016-07-25 05:54] LABS: BASO % 0.4 % (0-2); EOS % 6.1 % (0-7); EOSINOPHIL ABSOLUTE COUNT 0.3 tho/cmm (0.0-0.7); HCT-HEMATOCRIT 31.3 % (36.0-53.5); HGB-HEMOGLOBIN 9.4 gm/dl (13.5-17.0); IMMATURE GRANULOCYTES ABSOLUTE 0.02 tho/cmm (0-0.03); IMMATURE GRANULOCYTES PERCENT 0.4 % (0-0.3); LYMPH % 30.9 % (20-45); LYMPH ABSOLUTE COUNT 1.5 tho/cmm (0.8-4.5); MCH (MEAN CORPUSCULAR HGB) 23.7 pg (28.0-32.0); MCV (MEAN CELL VOLUME) 78.8 fl (82.0-96.0); MEAN PLATELET VOLUME 9.4 cmc (9.4-12.4); MONO % 10.3 % (0-12); MONOCYTE ABSOLUTE COUNT 0.5 tho/cmm (0.0-1.2); NEUTROPHIL ABSOLUTE COUNT 2.6 tho/cmm (1.6-8.0); NEUTROPHIL-AUTOMATED 2.6 tho/cmm (1.6-8.0); NEUTROPHILS % 51.9 % (40-80); PLATELET COUNT 279 tho/cmm (150-450); RED BLOOD COUNT 3.97 mil/cmm (4.40-5.70); RED CELL DISTRIBUTION WIDTH 17.9 % (12.4-16.4)
[2016-07-25 05:59] LABS: INR 3.1 INR (0.9-1.1); PROTHROMBIN TIME 36.8 SECONDS (9.0-13.6)
[2016-07-25 06:19] LABS: ANION GAP 11 mmol/L (5-15); BLOOD UREA NITROGEN 16 mg/dl (6-25); CALCIUM 8.9 mg/dl (8.6-10.2); CARBON DIOXIDE-VENOUS 31 mmol/L (22-29); CHLORIDE 96 mmol/L (98-110); GLUCOSE 96 mg/dl (65-120); POTASSIUM 4.3 mmol/L (3.4-5.0); SODIUM 138 mmol/L (135-146); eGFR VALUE FOR BLACK >60 mL/Min
[2016-07-26 05:14] LABS: INR 2.5 INR (0.9-1.1)
[2016-07-26 05:53] LABS: PROTHROMBIN TIME 30.4 SECONDS (9.0-13.6)
[2016-07-28 06:04] LABS: INR 2.3 INR (0.9-1.1)
[2016-07-29 06:08] LABS: INR 2.5 INR (0.9-1.1); PROTHROMBIN TIME 29.5 SECONDS (9.0-13.6)
[2016-08-01 06:07] LABS: INR 2.2 INR (0.9-1.1); PROTHROMBIN TIME 26.6 SECONDS (9.0-13.6)
[2016-08-03 05:32] LABS: INR 2.4 INR (0.9-1.1); PROTHROMBIN TIME 28.4 SECONDS (9.0-13.6)
[2016-08-04 06:06] LABS: INR 2.1 INR (0.9-1.1); PROTHROMBIN TIME 24.9 SECONDS (9.0-13.6)
[2016-08-05 06:09] LABS: INR 2.5 INR (0.9-1.1); PROTHROMBIN TIME 29.7 SECONDS (9.0-13.6)
[2016-08-06 06:34] LABS: INR 2.3 INR (0.9-1.1); PROTHROMBIN TIME 27.8 SECONDS (9.0-13.6)
[2016-08-07 07:04] LABS: INR 2.2 INR (0.9-1.1); PROTHROMBIN TIME 25.8 SECONDS (9.0-13.6)
[2016-08-08 06:47] LABS: INR 2.4 INR (0.9-1.1); PROTHROMBIN TIME 29.1 SECONDS (9.0-13.6)
[2016-08-09 05:56] LABS: INR 2.4 INR (0.9-1.1); PROTHROMBIN TIME 28.4 SECONDS (9.0-13.6)
[2016-08-10 06:13] LABS: INR 2.2 INR (0.9-1.1); PROTHROMBIN TIME 26.2 SECONDS (9.0-13.6)
[2016-08-11 04:55] LABS: INR 2.3 INR (0.9-1.1); PROTHROMBIN TIME 27.5 SECONDS (9.0-13.6)
[2016-08-12 06:21] LABS: INR 2.7 INR (0.9-1.1); PROTHROMBIN TIME 31.7 SECONDS (9.0-13.6)
[2016-08-13 05:53] LABS: INR 2.5 INR (0.9-1.1); PROTHROMBIN TIME 29.3 SECONDS (9.0-13.6)
[2016-08-14 06:41] LABS: INR 2.8 INR (0.9-1.1)
[2016-08-15 06:17] LABS: INR 2.9 INR (0.9-1.1); PROTHROMBIN TIME 34.6 SECONDS (9.0-13.6)
[2016-08-15 13:11] LABS: BASO % 0.5 % (0-2); EOS % 7.9 % (0-7); EOSINOPHIL ABSOLUTE COUNT 0.5 tho/cmm (0.0-0.7); HCT-HEMATOCRIT 32.2 % (36.0-53.5); HGB-HEMOGLOBIN 9.3 gm/dl (13.5-17.0); LYMPH % 24.3 % (20-45); LYMPH ABSOLUTE COUNT 1.4 tho/cmm (0.8-4.5); MCH (MEAN CORPUSCULAR HGB) 23.4 pg (28.0-32.0); MCV (MEAN CELL VOLUME) 81.1 fl (82.0-96.0); MONO % 8.4 % (0-12); MONOCYTE ABSOLUTE COUNT 0.5 tho/cmm (0.0-1.2); NEUTROPHIL ABSOLUTE COUNT 3.4 tho/cmm (1.6-8.0); NEUTROPHIL-AUTOMATED 3.4 tho/cmm (1.6-8.0); NEUTROPHILS % 58.9 % (40-80); PLATELET COUNT 274 tho/cmm (150-450); RED BLOOD COUNT 3.97 mil/cmm (4.40-5.70); RED CELL DISTRIBUTION WIDTH 17.8 % (12.4-16.4); WHITE BLOOD COUNT 5.7 tho/cmm (4.0-10.0)
[2016-08-15 13:21] LABS: ANION GAP 9 mmol/L (5-15); BLOOD UREA NITROGEN 16 mg/dl (6-25); CALCIUM 8.4 mg/dl (8.6-10.2); CARBON DIOXIDE-VENOUS 33 mmol/L (22-29); CHLORIDE 99 mmol/L (98-110); CREATININE 0.77 mg/dl (0.67-1.17); GLUCOSE 135 mg/dl (65-120); POTASSIUM 4.3 mmol/L (3.4-5.0); SODIUM 141 mmol/L (135-146); eGFR VALUE FOR BLACK >60 mL/Min
[2016-08-15 13:28] LABS: MCHC MEAN CORPUSCULAR HGB CONC 28.9 % (32.0-36.0)
[2016-08-15 16:24] LABS: IRON 19 ug/dl (59-158); IRON BINDING CAPACITY 293 ug/dl (250-400); UNSATURATED IRON BINDING CAP. 274 ug/dl (112-346)
[2016-08-16 06:16] LABS: INR 2.6 INR (0.9-1.1); PROTHROMBIN TIME 31.5 SECONDS (9.0-13.6)
[2016-08-17 05:56] LABS: INR 2.8 INR (0.9-1.1); PROTHROMBIN TIME 33.1 SECONDS (9.0-13.6)
[2016-08-18 04:40] LABS: INR 3.4 INR (0.9-1.1); PROTHROMBIN TIME 40.9 SECONDS (9.0-13.6)
[2016-08-19 06:11] LABS: HCT-HEMATOCRIT 34.4 % (36.0-53.5); HGB-HEMOGLOBIN 10.2 gm/dl (13.5-17.0); MCV (MEAN CELL VOLUME) 80.4 fl (82.0-96.0); RED CELL DISTRIBUTION WIDTH 17.8 % (12.4-16.4)
[2016-08-19 06:16] LABS: PROTHROMBIN TIME 35.5 SECONDS (9.0-13.6)
[2016-08-20 06:38] LABS: INR 3.3 INR (0.9-1.1); PROTHROMBIN TIME 39.1 SECONDS (9.0-13.6)
[2016-08-21 06:09] LABS: INR 2.9 INR (0.9-1.1); PROTHROMBIN TIME 35.3 SECONDS (9.0-13.6)
[2016-08-22 07:12] LABS: INR 2.1 INR (0.9-1.1); PROTHROMBIN TIME 25.4 SECONDS (9.0-13.6)
[2016-08-23 05:43] LABS: INR 1.7 INR (0.9-1.1)
[2016-08-23 06:14] LABS: PROTHROMBIN TIME 19.5 SECONDS (9.0-13.6)
[2016-08-24 06:45] LABS: INR 1.4 INR (0.9-1.1); PROTHROMBIN TIME 16.2 SECONDS (9.0-13.6)
[2016-08-25 05:39] LABS: BASO % 0.2 % (0-2); EOS % 3.6 % (0-7); EOSINOPHIL ABSOLUTE COUNT 0.4 tho/cmm (0.0-0.7); HCT-HEMATOCRIT 34.2 % (36.0-53.5); HGB-HEMOGLOBIN 10.1 gm/dl (13.5-17.0); IMMATURE GRANULOCYTES ABSOLUTE 0.02 tho/cmm (0-0.03); IMMATURE GRANULOCYTES PERCENT 0.2 % (0-0.3); LYMPH % 10.2 % (20-45); MCH (MEAN CORPUSCULAR HGB) 23.8 pg (28.0-32.0); MCHC MEAN CORPUSCULAR HGB CONC 29.5 % (32.0-36.0); MCV (MEAN CELL VOLUME) 80.5 fl (82.0-96.0); MEAN PLATELET VOLUME 9.3 cmc (9.4-12.4); MONO % 9.3 % (0-12); MONOCYTE ABSOLUTE COUNT 0.9 tho/cmm (0.0-1.2); NEUTROPHIL ABSOLUTE COUNT 7.7 tho/cmm (1.6-8.0); NEUTROPHIL-AUTOMATED 7.7 tho/cmm (1.6-8.0); NEUTROPHILS % 76.5 % (40-80); PLATELET COUNT 241 tho/cmm (150-450); RED BLOOD COUNT 4.25 mil/cmm (4.40-5.70); RED CELL DISTRIBUTION WIDTH 17.8 % (12.4-16.4); WHITE BLOOD COUNT 10.1 tho/cmm (4.0-10.0)
[2016-08-25 05:44] LABS: INR 1.2 INR (0.9-1.1); PROTHROMBIN TIME 13.8 SECONDS (9.0-13.6)
[2016-08-25 05:54] LABS: ANION GAP 10 mmol/L (5-15); BLOOD UREA NITROGEN 16 mg/dl (6-25); CALCIUM 8.8 mg/dl (8.6-10.2); CARBON DIOXIDE-VENOUS 32 mmol/L (22-29); CHLORIDE 103 mmol/L (98-110); CREATININE 0.69 mg/dl (0.67-1.17); GLUCOSE 139 mg/dl (65-120); POTASSIUM 4.1 mmol/L (3.4-5.0); SODIUM 145 mmol/L (135-146); eGFR VALUE FOR BLACK >60 mL/Min
[2016-08-25 18:36] LABS: URINE APPEARANCE HAZY; URINE BILIRUBIN NEGATIVE (NEG); URINE BLOOD MODERATE (NEG); URINE COLOR YELLOW; URINE GLUCOSE (UA) NEGATIVE (NEG); URINE KETONE NEGATIVE (NEG); URINE LEUKOCYTE ESTERASE POSITIVE (NEG); URINE NITRITE NEGATIVE (NEG); URINE SPECIFIC GRAVITY 1.017 (1.003-1.030)
[2016-08-25 18:43] LABS: URINE AMORPHOUS 1+; URINE BACTERIA 3+; URINE EPITHELIAL CELLS 0 /[HPF] (0-10); URINE PROT SULFOSALICYLIC ACID 1+ (NEG); URINE RBC RARE /[HPF] (0-5); URINE WBC 15-20 /[HPF] (0-5)
[2016-08-26 06:22] LABS: INR 1.1 INR (0.9-1.1); PROTHROMBIN TIME 13.1 SECONDS (9.0-13.6)
[2016-08-27 06:11] LABS: INR 1.1 INR (0.9-1.1); PROTHROMBIN TIME 12.4 SECONDS (9.0-13.6)
[2016-08-28 06:08] LABS: INR 1.1 INR (0.9-1.1); PROTHROMBIN TIME 12.2 SECONDS (9.0-13.6)
--- NOTE | 2016-08-28 11:23 | NUR ---
LAB REPORTS URINE CULTURE SHOWED PROTEUS MIRABILIS AND E.COLI, RN VERBAL REPORT TO OF THE ABOVE INFON, NO CHANGES ON THE ORDERS.
[2016-09-01 06:30] LABS: ANION GAP 10 mmol/L (5-15); BLOOD UREA NITROGEN 21 mg/dl (6-25); CALCIUM 8.6 mg/dl (8.6-10.2); CARBON DIOXIDE-VENOUS 30 mmol/L (22-29); CHLORIDE 104 mmol/L (98-110); CREATININE 0.72 mg/dl (0.67-1.17); GLUCOSE 144 mg/dl (65-120); MAGNESIUM 2.2 mg/dl (1.7-2.5); PHOSPHOROUS 3.2 mg/dl (2.7-4.5); POTASSIUM 4.2 mmol/L (3.4-5.0); SODIUM 144 mmol/L (135-146); eGFR VALUE FOR BLACK >60 mL/Min
[2016-09-02 06:33] LABS: BASO % 0.7 % (0-2); EOSINOPHIL ABSOLUTE COUNT 0.3 tho/cmm (0.0-0.7); HCT-HEMATOCRIT 35.1 % (36.0-53.5); HGB-HEMOGLOBIN 10.2 gm/dl (13.5-17.0); LYMPH % 18.1 % (20-45); LYMPH ABSOLUTE COUNT 0.8 tho/cmm (0.8-4.5); MCH (MEAN CORPUSCULAR HGB) 23.7 pg (28.0-32.0); MCHC MEAN CORPUSCULAR HGB CONC 29.1 % (32.0-36.0); MCV (MEAN CELL VOLUME) 81.6 fl (82.0-96.0); MONO % 9.9 % (0-12); MONOCYTE ABSOLUTE COUNT 0.4 tho/cmm (0.0-1.2); NEUTROPHIL ABSOLUTE COUNT 2.9 tho/cmm (1.6-8.0); NEUTROPHIL-AUTOMATED 2.9 tho/cmm (1.6-8.0); NEUTROPHILS % 64.3 % (40-80); PLATELET COUNT 220 tho/cmm (150-450); WHITE BLOOD COUNT 4.4 tho/cmm (4.0-10.0)
[2016-09-02 06:36] LABS: ANION GAP 11 mmol/L (5-15); BLOOD UREA NITROGEN 19 mg/dl (6-25); CALCIUM 8.5 mg/dl (8.6-10.2); CARBON DIOXIDE-VENOUS 31 mmol/L (22-29); CHLORIDE 105 mmol/L (98-110); CREATININE 0.79 mg/dl (0.67-1.17); GLUCOSE 146 mg/dl (65-120); POTASSIUM 4.1 mmol/L (3.4-5.0); SODIUM 147 mmol/L (135-146); eGFR VALUE FOR BLACK >60 mL/Min
[2016-09-03 06:29] LABS: HCT-HEMATOCRIT 35.1 % (36.0-53.5); HGB-HEMOGLOBIN 10.2 gm/dl (13.5-17.0); MCV (MEAN CELL VOLUME) 81.1 fl (82.0-96.0); PLATELET COUNT 211 tho/cmm (150-450); RED CELL DISTRIBUTION WIDTH 18.2 % (12.4-16.4)
[2016-09-03 06:32] LABS: ANION GAP 10 mmol/L (5-15); BLOOD UREA NITROGEN 18 mg/dl (6-25); CALCIUM 8.6 mg/dl (8.6-10.2); CARBON DIOXIDE-VENOUS 31 mmol/L (22-29); CHLORIDE 104 mmol/L (98-110); CREATININE 0.69 mg/dl (0.67-1.17); GLUCOSE 137 mg/dl (65-120); SODIUM 145 mmol/L (135-146); eGFR VALUE FOR BLACK >60 mL/Min
[2016-09-05 06:30] LABS: ANION GAP 10 mmol/L (5-15); BLOOD UREA NITROGEN 17 mg/dl (6-25); CALCIUM 8.7 mg/dl (8.6-10.2); CARBON DIOXIDE-VENOUS 31 mmol/L (22-29); CHLORIDE 106 mmol/L (98-110); CREATININE 0.74 mg/dl (0.67-1.17); GLUCOSE 127 mg/dl (65-120); POTASSIUM 4.2 mmol/L (3.4-5.0); SODIUM 147 mmol/L (135-146); eGFR VALUE FOR BLACK >60 mL/Min
[2016-09-06 05:56] LABS: HCT-HEMATOCRIT 35.8 % (36.0-53.5); HGB-HEMOGLOBIN 10.4 gm/dl (13.5-17.0); MCV (MEAN CELL VOLUME) 81.2 fl (82.0-96.0); PLATELET COUNT 255 tho/cmm (150-450); RED CELL DISTRIBUTION WIDTH 18.4 % (12.4-16.4)
[2016-09-06 06:07] LABS: ANION GAP 10 mmol/L (5-15); BLOOD UREA NITROGEN 20 mg/dl (6-25); CALCIUM 8.9 mg/dl (8.6-10.2); CARBON DIOXIDE-VENOUS 31 mmol/L (22-29); CHLORIDE 106 mmol/L (98-110); CREATININE 0.85 mg/dl (0.67-1.17); GLUCOSE 118 mg/dl (65-120); POTASSIUM 4.3 mmol/L (3.4-5.0); SODIUM 147 mmol/L (135-146); eGFR VALUE FOR BLACK >60 mL/Min
[2016-09-07 07:01] LABS: ANION GAP 8 mmol/L (5-15); BLOOD UREA NITROGEN 21 mg/dl (6-25); CALCIUM 8.8 mg/dl (8.6-10.2); CARBON DIOXIDE-VENOUS 32 mmol/L (22-29); CHLORIDE 106 mmol/L (98-110); CREATININE 0.76 mg/dl (0.67-1.17); GLUCOSE 128 mg/dl (65-120); POTASSIUM 4.3 mmol/L (3.4-5.0); SODIUM 146 mmol/L (135-146); eGFR VALUE FOR BLACK >60 mL/Min
[2016-09-09 06:21] LABS: HCT-HEMATOCRIT 35.4 % (36.0-53.5); HGB-HEMOGLOBIN 10.5 gm/dl (13.5-17.0); MCV (MEAN CELL VOLUME) 80.6 fl (82.0-96.0); PLATELET COUNT 225 tho/cmm (150-450); RED CELL DISTRIBUTION WIDTH 18.2 % (12.4-16.4)
[2016-09-09 06:36] LABS: ANION GAP 11 mmol/L (5-15); BLOOD UREA NITROGEN 19 mg/dl (6-25); CALCIUM 8.8 mg/dl (8.6-10.2); CARBON DIOXIDE-VENOUS 30 mmol/L (22-29); CHLORIDE 107 mmol/L (98-110); GLUCOSE 139 mg/dl (65-120); POTASSIUM 3.9 mmol/L (3.4-5.0); SODIUM 148 mmol/L (135-146); eGFR VALUE FOR BLACK >60 mL/Min
[2016-09-12 06:23] LABS: BASO % 0.2 % (0-2); EOS % 7.6 % (0-7); EOSINOPHIL ABSOLUTE COUNT 0.4 tho/cmm (0.0-0.7); HCT-HEMATOCRIT 35.8 % (36.0-53.5); HGB-HEMOGLOBIN 10.7 gm/dl (13.5-17.0); IMMATURE GRANULOCYTES ABSOLUTE 0.03 tho/cmm (0-0.03); IMMATURE GRANULOCYTES PERCENT 0.5 % (0-0.3); LYMPH % 31.8 % (20-45); LYMPH ABSOLUTE COUNT 1.8 tho/cmm (0.8-4.5); MCH (MEAN CORPUSCULAR HGB) 24.2 pg (28.0-32.0); MCHC MEAN CORPUSCULAR HGB CONC 29.9 % (32.0-36.0); MCV (MEAN CELL VOLUME) 80.8 fl (82.0-96.0); MEAN PLATELET VOLUME 9.9 cmc (9.4-12.4); MONO % 6.6 % (0-12); MONOCYTE ABSOLUTE COUNT 0.4 tho/cmm (0.0-1.2); NEUTROPHIL ABSOLUTE COUNT 3.1 tho/cmm (1.6-8.0); NEUTROPHIL-AUTOMATED 3.1 tho/cmm (1.6-8.0); NEUTROPHILS % 53.3 % (40-80); PLATELET COUNT 247 tho/cmm (150-450); RED BLOOD COUNT 4.43 mil/cmm (4.40-5.70); RED CELL DISTRIBUTION WIDTH 18.6 % (12.4-16.4); WHITE BLOOD COUNT 5.8 tho/cmm (4.0-10.0)
[2016-09-12 06:46] LABS: ANION GAP 12 mmol/L (5-15); BLOOD UREA NITROGEN 20 mg/dl (6-25); CALCIUM 8.5 mg/dl (8.6-10.2); CARBON DIOXIDE-VENOUS 29 mmol/L (22-29); CHLORIDE 105 mmol/L (98-110); CREATININE 0.84 mg/dl (0.67-1.17); GLUCOSE 133 mg/dl (65-120); SODIUM 146 mmol/L (135-146); eGFR VALUE FOR BLACK >60 mL/Min
[2016-09-14 05:40] LABS: BASO % 0.2 % (0-2); EOS % 8.2 % (0-7); EOSINOPHIL ABSOLUTE COUNT 0.5 tho/cmm (0.0-0.7); HGB-HEMOGLOBIN 10.3 gm/dl (13.5-17.0); IMMATURE GRANULOCYTES ABSOLUTE 0.02 tho/cmm (0-0.03); IMMATURE GRANULOCYTES PERCENT 0.4 % (0-0.3); LYMPH % 25.6 % (20-45); LYMPH ABSOLUTE COUNT 1.4 tho/cmm (0.8-4.5); MCHC MEAN CORPUSCULAR HGB CONC 29.4 % (32.0-36.0); MCV (MEAN CELL VOLUME) 81.6 fl (82.0-96.0); MEAN PLATELET VOLUME 9.6 cmc (9.4-12.4); MONO % 9.3 % (0-12); MONOCYTE ABSOLUTE COUNT 0.5 tho/cmm (0.0-1.2); NEUTROPHIL ABSOLUTE COUNT 3.2 tho/cmm (1.6-8.0); NEUTROPHIL-AUTOMATED 3.2 tho/cmm (1.6-8.0); NEUTROPHILS % 56.3 % (40-80); PLATELET COUNT 209 tho/cmm (150-450); RED BLOOD COUNT 4.29 mil/cmm (4.40-5.70); RED CELL DISTRIBUTION WIDTH 18.5 % (12.4-16.4); WHITE BLOOD COUNT 5.6 tho/cmm (4.0-10.0)
[2016-09-14 06:02] LABS: ANION GAP 10 mmol/L (5-15); BLOOD UREA NITROGEN 19 mg/dl (6-25); CALCIUM 8.6 mg/dl (8.6-10.2); CARBON DIOXIDE-VENOUS 31 mmol/L (22-29); CHLORIDE 108 mmol/L (98-110); CREATININE 0.76 mg/dl (0.67-1.17); GLUCOSE 153 mg/dl (65-120); POTASSIUM 3.9 mmol/L (3.4-5.0); SODIUM 149 mmol/L (135-146); eGFR VALUE FOR BLACK >60 mL/Min
[2016-09-16 06:09] LABS: ANION GAP 12 mmol/L (5-15); BLOOD UREA NITROGEN 22 mg/dl (6-25); CALCIUM 8.7 mg/dl (8.6-10.2); CARBON DIOXIDE-VENOUS 28 mmol/L (22-29); CHLORIDE 105 mmol/L (98-110); CREATININE 0.88 mg/dl (0.67-1.17); GLUCOSE 124 mg/dl (65-120); POTASSIUM 4.3 mmol/L (3.4-5.0); SODIUM 145 mmol/L (135-146); eGFR VALUE FOR BLACK >60 mL/Min
[2016-09-18 17:05] LABS: URINE BILIRUBIN NEGATIVE (NEG); URINE BLOOD MODERATE (NEG); URINE GLUCOSE (UA) NEGATIVE (NEG); URINE KETONE NEGATIVE (NEG); URINE LEUKOCYTE ESTERASE POSITIVE (NEG); URINE NITRITE NEGATIVE (NEG)
[2016-09-18 17:06] LABS: URINE APPEARANCE SL CLOUDY; URINE COLOR YELLOW; URINE SPECIFIC GRAVITY 1.018 (1.003-1.030)
[2016-09-18 17:14] LABS: URINE AMORPHOUS 2+; URINE BACTERIA 3+; URINE PROT SULFOSALICYLIC ACID 1+ (NEG)
[2016-09-19 11:01] LABS: BASO % 0.2 % (0-2); EOS % 6.3 % (0-7); EOSINOPHIL ABSOLUTE COUNT 0.4 tho/cmm (0.0-0.7); HCT-HEMATOCRIT 33.8 % (36.0-53.5); HGB-HEMOGLOBIN 10.2 gm/dl (13.5-17.0); IMMATURE GRANULOCYTES ABSOLUTE 0.01 tho/cmm (0-0.03); IMMATURE GRANULOCYTES PERCENT 0.2 % (0-0.3); LYMPH % 24.6 % (20-45); LYMPH ABSOLUTE COUNT 1.5 tho/cmm (0.8-4.5); MCH (MEAN CORPUSCULAR HGB) 24.3 pg (28.0-32.0); MCHC MEAN CORPUSCULAR HGB CONC 30.2 % (32.0-36.0); MCV (MEAN CELL VOLUME) 80.5 fl (82.0-96.0); MONOCYTE ABSOLUTE COUNT 0.6 tho/cmm (0.0-1.2); NEUTROPHIL ABSOLUTE COUNT 3.7 tho/cmm (1.6-8.0); NEUTROPHIL-AUTOMATED 3.7 tho/cmm (1.6-8.0); NEUTROPHILS % 59.7 % (40-80); PLATELET COUNT 195 tho/cmm (150-450); RED CELL DISTRIBUTION WIDTH 18.8 % (12.4-16.4); WHITE BLOOD COUNT 6.2 tho/cmm (4.0-10.0)
[2016-09-19 11:20] LABS: ANION GAP 8 mmol/L (5-15); BLOOD UREA NITROGEN 18 mg/dl (6-25); CALCIUM 8.2 mg/dl (8.6-10.2); CARBON DIOXIDE-VENOUS 31 mmol/L (22-29); CHLORIDE 101 mmol/L (98-110); CREATININE 0.92 mg/dl (0.67-1.17); GLUCOSE 139 mg/dl (65-120); SODIUM 140 mmol/L (135-146); eGFR VALUE FOR BLACK >60 mL/Min
[2016-09-19 11:24] LABS: POTASSIUM 4.3 mmol/L (3.4-5.0)
[2016-09-19 11:38] LABS: PROCALCITONIN 0.08 ng/ml (0.05-0.09)
--- NOTE | 2016-09-20 12:09 | NUR ---
Called POA/Daughter Venita to discuss son Miguel Angel's claim of a missing hearing aide. Message left for her to return my call. RISHABH Brown [facility] Interim Director
[2016-09-23 06:16] LABS: BASO % 0.2 % (0-2); EOS % 6.5 % (0-7); EOSINOPHIL ABSOLUTE COUNT 0.3 tho/cmm (0.0-0.7); HCT-HEMATOCRIT 30.8 % (36.0-53.5); HGB-HEMOGLOBIN 9.2 gm/dl (13.5-17.0); IMMATURE GRANULOCYTES ABSOLUTE 0.02 tho/cmm (0-0.03); IMMATURE GRANULOCYTES PERCENT 0.4 % (0-0.3); LYMPH % 27.8 % (20-45); LYMPH ABSOLUTE COUNT 1.4 tho/cmm (0.8-4.5); MCH (MEAN CORPUSCULAR HGB) 24.1 pg (28.0-32.0); MCHC MEAN CORPUSCULAR HGB CONC 29.9 % (32.0-36.0); MCV (MEAN CELL VOLUME) 80.8 fl (82.0-96.0); MEAN PLATELET VOLUME 10.2 cmc (9.4-12.4); MONOCYTE ABSOLUTE COUNT 0.5 tho/cmm (0.0-1.2); NEUTROPHIL ABSOLUTE COUNT 2.9 tho/cmm (1.6-8.0); NEUTROPHIL-AUTOMATED 2.9 tho/cmm (1.6-8.0); NEUTROPHILS % 56.1 % (40-80); PLATELET COUNT 192 tho/cmm (150-450); RED BLOOD COUNT 3.81 mil/cmm (4.40-5.70); WHITE BLOOD COUNT 5.1 tho/cmm (4.0-10.0)
[2016-09-23 06:32] LABS: ANION GAP 12 mmol/L (5-15); BLOOD UREA NITROGEN 14 mg/dl (6-25); CALCIUM 8.1 mg/dl (8.6-10.2); CARBON DIOXIDE-VENOUS 27 mmol/L (22-29); CHLORIDE 100 mmol/L (98-110); CREATININE 0.92 mg/dl (0.67-1.17); GLUCOSE 135 mg/dl (65-120); POTASSIUM 4.1 mmol/L (3.4-5.0); SODIUM 139 mmol/L (135-146); eGFR VALUE FOR BLACK >60 mL/Min
[2016-09-26 11:18] LABS: BASO % 0.4 % (0-2); EOS % 7.5 % (0-7); EOSINOPHIL ABSOLUTE COUNT 0.4 tho/cmm (0.0-0.7); HCT-HEMATOCRIT 33.8 % (36.0-53.5); HGB-HEMOGLOBIN 10.3 gm/dl (13.5-17.0); IMMATURE GRANULOCYTES ABSOLUTE 0.02 tho/cmm (0-0.03); IMMATURE GRANULOCYTES PERCENT 0.4 % (0-0.3); LYMPH % 27.5 % (20-45); LYMPH ABSOLUTE COUNT 1.5 tho/cmm (0.8-4.5); MCH (MEAN CORPUSCULAR HGB) 24.6 pg (28.0-32.0); MCHC MEAN CORPUSCULAR HGB CONC 30.5 % (32.0-36.0); MCV (MEAN CELL VOLUME) 80.9 fl (82.0-96.0); MEAN PLATELET VOLUME 9.8 cmc (9.4-12.4); MONO % 7.3 % (0-12); MONOCYTE ABSOLUTE COUNT 0.4 tho/cmm (0.0-1.2); NEUTROPHIL ABSOLUTE COUNT 3.1 tho/cmm (1.6-8.0); NEUTROPHIL-AUTOMATED 3.1 tho/cmm (1.6-8.0); NEUTROPHILS % 56.9 % (40-80); PLATELET COUNT 231 tho/cmm (150-450); RED BLOOD COUNT 4.18 mil/cmm (4.40-5.70); RED CELL DISTRIBUTION WIDTH 18.9 % (12.4-16.4); WHITE BLOOD COUNT 5.5 tho/cmm (4.0-10.0)
[2016-09-26 11:32] LABS: ANION GAP 13 mmol/L (5-15); BLOOD UREA NITROGEN 15 mg/dl (6-25); CALCIUM 8.6 mg/dl (8.6-10.2); CARBON DIOXIDE-VENOUS 28 mmol/L (22-29); CHLORIDE 100 mmol/L (98-110); CREATININE 0.85 mg/dl (0.67-1.17); GLUCOSE 137 mg/dl (65-120); POTASSIUM 4.3 mmol/L (3.4-5.0); SODIUM 141 mmol/L (135-146); eGFR VALUE FOR BLACK >60 mL/Min
[2016-09-26 12:07] LABS: URINE APPEARANCE HAZY; URINE BILIRUBIN NEGATIVE (NEG); URINE BLOOD LARGE (NEG); URINE COLOR YELLOW; URINE GLUCOSE (UA) NEGATIVE (NEG); URINE KETONE NEGATIVE (NEG); URINE LEUKOCYTE ESTERASE POSITIVE (NEG); URINE NITRITE NEGATIVE (NEG); URINE SPECIFIC GRAVITY 1.017 (1.003-1.030)
[2016-09-26 12:14] LABS: URINE PROT SULFOSALICYLIC ACID TRACE (NEG)
[2016-09-26 12:19] LABS: URINE EPITHELIAL CELLS 0-1 /[HPF] (0-10); URINE RBC 40-50 /[HPF] (0-5); URINE WBC 30-40 /[HPF] (0-5)
[2016-10-10 06:06] LABS: ANION GAP 11 mmol/L (5-15); BLOOD UREA NITROGEN 16 mg/dl (6-25); CALCIUM 8.5 mg/dl (8.6-10.2); CARBON DIOXIDE-VENOUS 31 mmol/L (22-29); CHLORIDE 104 mmol/L (98-110); GLUCOSE 118 mg/dl (65-120); POTASSIUM 3.8 mmol/L (3.4-5.0); SODIUM 146 mmol/L (135-146); eGFR VALUE FOR BLACK >60 mL/Min
[2016-10-17 04:53] LABS: BASO % 0.2 % (0-2); EOS % 5.7 % (0-7); EOSINOPHIL ABSOLUTE COUNT 0.3 tho/cmm (0.0-0.7); IMMATURE GRANULOCYTES ABSOLUTE 0.02 tho/cmm (0-0.03); IMMATURE GRANULOCYTES PERCENT 0.4 % (0-0.3); LYMPH % 29.7 % (20-45); LYMPH ABSOLUTE COUNT 1.6 tho/cmm (0.8-4.5); MCH (MEAN CORPUSCULAR HGB) 25.3 pg (28.0-32.0); MCHC MEAN CORPUSCULAR HGB CONC 30.6 % (32.0-36.0); MCV (MEAN CELL VOLUME) 82.9 fl (82.0-96.0); MONO % 9.7 % (0-12); MONOCYTE ABSOLUTE COUNT 0.5 tho/cmm (0.0-1.2); NEUTROPHIL ABSOLUTE COUNT 2.9 tho/cmm (1.6-8.0); NEUTROPHIL-AUTOMATED 2.9 tho/cmm (1.6-8.0); NEUTROPHILS % 54.3 % (40-80); PLATELET COUNT 188 tho/cmm (150-450); RED BLOOD COUNT 4.34 mil/cmm (4.40-5.70); RED CELL DISTRIBUTION WIDTH 19.1 % (12.4-16.4); WHITE BLOOD COUNT 5.3 tho/cmm (4.0-10.0)
[2016-10-31 05:11] LABS: BASO % 0.1 % (0-2); EOS % 4.5 % (0-7); EOSINOPHIL ABSOLUTE COUNT 0.3 tho/cmm (0.0-0.7); HGB-HEMOGLOBIN 11.5 gm/dl (13.5-17.0); IMMATURE GRANULOCYTES ABSOLUTE 0.01 tho/cmm (0-0.03); IMMATURE GRANULOCYTES PERCENT 0.1 % (0-0.3); LYMPH % 22.9 % (20-45); LYMPH ABSOLUTE COUNT 1.6 tho/cmm (0.8-4.5); MCH (MEAN CORPUSCULAR HGB) 25.4 pg (28.0-32.0); MCHC MEAN CORPUSCULAR HGB CONC 30.3 % (32.0-36.0); MCV (MEAN CELL VOLUME) 84.1 fl (82.0-96.0); MEAN PLATELET VOLUME 9.6 cmc (9.4-12.4); MONO % 6.4 % (0-12); MONOCYTE ABSOLUTE COUNT 0.4 tho/cmm (0.0-1.2); NEUTROPHIL ABSOLUTE COUNT 4.6 tho/cmm (1.6-8.0); NEUTROPHIL-AUTOMATED 4.6 tho/cmm (1.6-8.0); PLATELET COUNT 186 tho/cmm (150-450); RED BLOOD COUNT 4.52 mil/cmm (4.40-5.70); RED CELL DISTRIBUTION WIDTH 19.7 % (12.4-16.4); WHITE BLOOD COUNT 6.9 tho/cmm (4.0-10.0)
[2016-11-10 12:42] LABS: BASO % 0.2 % (0-2); EOS % 6.5 % (0-7); EOSINOPHIL ABSOLUTE COUNT 0.3 tho/cmm (0.0-0.7); HCT-HEMATOCRIT 36.9 % (36.0-53.5); HGB-HEMOGLOBIN 11.5 gm/dl (13.5-17.0); IMMATURE GRANULOCYTES ABSOLUTE 0.01 tho/cmm (0-0.03); IMMATURE GRANULOCYTES PERCENT 0.2 % (0-0.3); LYMPH % 28.8 % (20-45); LYMPH ABSOLUTE COUNT 1.5 tho/cmm (0.8-4.5); MCH (MEAN CORPUSCULAR HGB) 26.2 pg (28.0-32.0); MCHC MEAN CORPUSCULAR HGB CONC 31.2 % (32.0-36.0); MCV (MEAN CELL VOLUME) 84.1 fl (82.0-96.0); MEAN PLATELET VOLUME 9.8 cmc (9.4-12.4); MONOCYTE ABSOLUTE COUNT 0.5 tho/cmm (0.0-1.2); NEUTROPHIL ABSOLUTE COUNT 2.8 tho/cmm (1.6-8.0); NEUTROPHIL-AUTOMATED 2.8 tho/cmm (1.6-8.0); NEUTROPHILS % 54.3 % (40-80); PLATELET COUNT 172 tho/cmm (150-450); RED BLOOD COUNT 4.39 mil/cmm (4.40-5.70); RED CELL DISTRIBUTION WIDTH 18.9 % (12.4-16.4); WHITE BLOOD COUNT 5.1 tho/cmm (4.0-10.0)
[2016-11-10 13:01] LABS: ANION GAP 12 mmol/L (0-20); BLOOD UREA NITROGEN 17 mg/dl (6-24); CALCIUM 8.4 mg/dl (8.5-10.5); CARBON DIOXIDE-VENOUS 30 mmol/L (22-32); CHLORIDE 107 mmol/l (96-110); CREATININE 0.78 mg/dl (0.60-1.30); GLUCOSE 126 mg/dL (70-110); POTASSIUM 4.1 mmol/L (3.7-5.1); SODIUM 145 mmol/L (135-145); eGFR VALUE FOR BLACK >60 mL/Min
[2016-11-23 05:57] LABS: HGB-HEMOGLOBIN 12.4 gm/dl (13.5-17.0); PLATELET COUNT 178 tho/cmm (150-450)
[2016-11-25 05:12] LABS: PLATELET COUNT 168 tho/cmm (150-450)
[2016-11-25 14:46] LABS: URINE BILIRUBIN NEGATIVE (NEG); URINE BLOOD LARGE (NEG); URINE GLUCOSE (UA) NEGATIVE (NEG); URINE KETONE NEGATIVE (NEG); URINE LEUKOCYTE ESTERASE POSITIVE (NEG); URINE NITRITE POSITIVE (NEG); URINE PROTEIN SMALL (NEG)
[2016-11-25 14:52] LABS: URINE APPEARANCE CLOUDY; URINE COLOR YELLOW
[2016-11-25 14:59] LABS: URINE BACTERIA 4+
[2016-11-25 15:00] LABS: URINE AMORPHOUS 3+
[2016-11-27 05:48] LABS: HGB-HEMOGLOBIN 12.3 gm/dl (13.5-17.0); PLATELET COUNT 172 tho/cmm (150-450)
[2016-11-28 06:09] LABS: BASO % 0.2 % (0-2); EOS % 4.8 % (0-7); EOSINOPHIL ABSOLUTE COUNT 0.3 tho/cmm (0.0-0.7); HCT-HEMATOCRIT 40.4 % (36.0-53.5); HGB-HEMOGLOBIN 12.5 gm/dl (13.5-17.0); IMMATURE GRANULOCYTES ABSOLUTE 0.01 tho/cmm (0-0.03); IMMATURE GRANULOCYTES PERCENT 0.2 % (0-0.3); LYMPH ABSOLUTE COUNT 1.3 tho/cmm (0.8-4.5); MCH (MEAN CORPUSCULAR HGB) 26.3 pg (28.0-32.0); MCHC MEAN CORPUSCULAR HGB CONC 30.9 % (32.0-36.0); MCV (MEAN CELL VOLUME) 84.9 fl (82.0-96.0); MEAN PLATELET VOLUME 10.7 cmc (9.4-12.4); MONO % 7.4 % (0-12); MONOCYTE ABSOLUTE COUNT 0.4 tho/cmm (0.0-1.2); NEUTROPHIL ABSOLUTE COUNT 3.5 tho/cmm (1.6-8.0); NEUTROPHIL-AUTOMATED 3.5 tho/cmm (1.6-8.0); NEUTROPHILS % 64.4 % (40-80); PLATELET COUNT 172 tho/cmm (150-450); RED BLOOD COUNT 4.76 mil/cmm (4.40-5.70); RED CELL DISTRIBUTION WIDTH 18.8 % (12.4-16.4); WHITE BLOOD COUNT 5.4 tho/cmm (4.0-10.0)
[2016-11-28 06:29] LABS: ANION GAP 9 mmol/L (0-20); BLOOD UREA NITROGEN 17 mg/dl (6-24); CALCIUM 8.6 mg/dl (8.5-10.5); CARBON DIOXIDE-VENOUS 31 mmol/L (22-32); CHLORIDE 107 mmol/l (96-110); CREATININE 0.81 mg/dl (0.60-1.30); GLUCOSE 107 mg/dL (70-110); POTASSIUM 4.1 mmol/L (3.7-5.1); SODIUM 143 mmol/L (135-145); eGFR VALUE FOR BLACK >90 mL/Min
[2016-12-05 05:54] LABS: BASO % 0.2 % (0-2); EOSINOPHIL ABSOLUTE COUNT 0.3 tho/cmm (0.0-0.7); HCT-HEMATOCRIT 39.2 % (36.0-53.5); HGB-HEMOGLOBIN 12.1 gm/dl (13.5-17.0); IMMATURE GRANULOCYTES ABSOLUTE 0.02 tho/cmm (0-0.03); IMMATURE GRANULOCYTES PERCENT 0.3 % (0-0.3); LYMPH ABSOLUTE COUNT 2.2 tho/cmm (0.8-4.5); MCH (MEAN CORPUSCULAR HGB) 26.4 pg (28.0-32.0); MCHC MEAN CORPUSCULAR HGB CONC 30.9 % (32.0-36.0); MCV (MEAN CELL VOLUME) 85.4 fl (82.0-96.0); MEAN PLATELET VOLUME 10.2 cmc (9.4-12.4); MONOCYTE ABSOLUTE COUNT 0.5 tho/cmm (0.0-1.2); NEUTROPHIL ABSOLUTE COUNT 3.2 tho/cmm (1.6-8.0); NEUTROPHIL-AUTOMATED 3.2 tho/cmm (1.6-8.0); NEUTROPHILS % 51.5 % (40-80); PLATELET COUNT 137 tho/cmm (150-450); RED BLOOD COUNT 4.59 mil/cmm (4.40-5.70); RED CELL DISTRIBUTION WIDTH 19.1 % (12.4-16.4); WHITE BLOOD COUNT 6.2 tho/cmm (4.0-10.0)
[2016-12-05 06:20] LABS: ANION GAP 11 mmol/L (0-20); BLOOD UREA NITROGEN 17 mg/dl (6-24); CALCIUM 8.4 mg/dl (8.5-10.5); CARBON DIOXIDE-VENOUS 31 mmol/L (22-32); CHLORIDE 105 mmol/l (96-110); CREATININE 0.98 mg/dl (0.60-1.30); GLUCOSE 136 mg/dL (70-110); POTASSIUM 3.7 mmol/L (3.7-5.1); SODIUM 143 mmol/L (135-145); eGFR VALUE FOR BLACK 87 mL/Min
[2016-12-05 06:41] LABS: URINE BILIRUBIN NEGATIVE (NEG); URINE BLOOD NEGATIVE (NEG); URINE GLUCOSE (UA) NEGATIVE (NEG); URINE KETONE NEGATIVE (NEG); URINE LEUKOCYTE ESTERASE NEGATIVE (NEG); URINE NITRITE NEGATIVE (NEG); URINE PROTEIN NEGATIVE (NEG)
[2016-12-05 06:43] LABS: URINE APPEARANCE CLEAR; URINE COLOR PALE YELLOW
[2016-12-05 09:44] LABS: URINE EPITHELIAL CELLS 0-2 /[HPF] (0-10); URINE RBC RARE /[HPF] (0-5); URINE WBC RARE /[HPF] (0-5)
[2016-12-06 09:26] LABS: BASO % 0.2 % (0-2); EOS % 6.4 % (0-7); EOSINOPHIL ABSOLUTE COUNT 0.4 tho/cmm (0.0-0.7); HCT-HEMATOCRIT 41.3 % (36.0-53.5); HGB-HEMOGLOBIN 12.8 gm/dl (13.5-17.0); IMMATURE GRANULOCYTES ABSOLUTE 0.02 tho/cmm (0-0.03); IMMATURE GRANULOCYTES PERCENT 0.3 % (0-0.3); LYMPH % 33.7 % (20-45); LYMPH ABSOLUTE COUNT 2.2 tho/cmm (0.8-4.5); MCH (MEAN CORPUSCULAR HGB) 26.6 pg (28.0-32.0); MCV (MEAN CELL VOLUME) 85.9 fl (82.0-96.0); MEAN PLATELET VOLUME 11.1 cmc (9.4-12.4); MONO % 9.6 % (0-12); MONOCYTE ABSOLUTE COUNT 0.6 tho/cmm (0.0-1.2); NEUTROPHIL ABSOLUTE COUNT 3.3 tho/cmm (1.6-8.0); NEUTROPHIL-AUTOMATED 3.3 tho/cmm (1.6-8.0); NEUTROPHILS % 49.8 % (40-80); PLATELET COUNT 150 tho/cmm (150-450); RED BLOOD COUNT 4.81 mil/cmm (4.40-5.70); RED CELL DISTRIBUTION WIDTH 19.1 % (12.4-16.4); WHITE BLOOD COUNT 6.6 tho/cmm (4.0-10.0)
[2016-12-08 14:14] LABS: PROCALCITONIN <0.05 ng/ml (0.05-0.09)
[2016-12-10 06:07] LABS: WHITE BLOOD COUNT 5.3 tho/cmm (4.0-10.0)
[2016-12-12 11:23] LABS: BASO % 0.2 % (0-2); EOS % 5.6 % (0-7); EOSINOPHIL ABSOLUTE COUNT 0.3 tho/cmm (0.0-0.7); HCT-HEMATOCRIT 38.9 % (36.0-53.5); HGB-HEMOGLOBIN 12.2 gm/dl (13.5-17.0); LYMPH % 29.4 % (20-45); LYMPH ABSOLUTE COUNT 1.8 tho/cmm (0.8-4.5); MCH (MEAN CORPUSCULAR HGB) 27.1 pg (28.0-32.0); MCHC MEAN CORPUSCULAR HGB CONC 31.4 % (32.0-36.0); MCV (MEAN CELL VOLUME) 86.4 fl (82.0-96.0); MEAN PLATELET VOLUME 9.8 cmc (9.4-12.4); MONO % 8.4 % (0-12); MONOCYTE ABSOLUTE COUNT 0.5 tho/cmm (0.0-1.2); NEUTROPHIL ABSOLUTE COUNT 3.4 tho/cmm (1.6-8.0); NEUTROPHIL-AUTOMATED 3.4 tho/cmm (1.6-8.0); NEUTROPHILS % 56.4 % (40-80); PLATELET COUNT 172 tho/cmm (150-450); RED CELL DISTRIBUTION WIDTH 18.1 % (12.4-16.4); WHITE BLOOD COUNT 6.1 tho/cmm (4.0-10.0)
[2016-12-12 11:34] LABS: ANION GAP 9 mmol/L (0-20); BLOOD UREA NITROGEN 16 mg/dl (6-24); CALCIUM 8.5 mg/dl (8.5-10.5); CARBON DIOXIDE-VENOUS 33 mmol/L (22-32); CHLORIDE 107 mmol/l (96-110); CREATININE 0.78 mg/dl (0.60-1.30); GLUCOSE 138 mg/dL (70-110); SODIUM 145 mmol/L (135-145); eGFR VALUE FOR BLACK >90 mL/Min
[2016-12-12 16:11] LABS: URINE BILIRUBIN NEGATIVE (NEG); URINE BLOOD LARGE (NEG); URINE GLUCOSE (UA) NEGATIVE (NEG); URINE KETONE NEGATIVE (NEG); URINE LEUKOCYTE ESTERASE POSITIVE (NEG); URINE NITRITE NEGATIVE (NEG); URINE PROTEIN NEGATIVE (NEG); URINE SPECIFIC GRAVITY 1.005 (1.003-1.030)
[2016-12-12 16:12] LABS: URINE APPEARANCE HAZY; URINE COLOR YELLOW
[2016-12-12 16:49] LABS: URINE AMORPHOUS 3+; URINE EPITHELIAL CELLS 0 /[HPF] (0-10); URINE RBC 0 /[HPF] (0-5)
--- NOTE | 2016-12-22 18:29 | NUR ---
1630 PEG TUBE DISLOGED WHILE TURNING. 16 Fr TORRES CATHETER INSERTED TO KEEP OPEN. GI CONSULT TO REINSURT PEG TUBE IN AM.
[2016-12-29 13:10] LABS: BASO % 0.3 % (0-2); EOSINOPHIL ABSOLUTE COUNT 0.4 tho/cmm (0.0-0.7); HCT-HEMATOCRIT 39.4 % (36.0-53.5); HGB-HEMOGLOBIN 12.6 gm/dl (13.5-17.0); IMMATURE GRANULOCYTES ABSOLUTE 0.01 tho/cmm (0-0.03); IMMATURE GRANULOCYTES PERCENT 0.2 % (0-0.3); LYMPH % 25.3 % (20-45); LYMPH ABSOLUTE COUNT 1.6 tho/cmm (0.8-4.5); MCH (MEAN CORPUSCULAR HGB) 27.4 pg (28.0-32.0); MCV (MEAN CELL VOLUME) 85.7 fl (82.0-96.0); MEAN PLATELET VOLUME 9.8 cmc (9.4-12.4); MONO % 6.5 % (0-12); MONOCYTE ABSOLUTE COUNT 0.4 tho/cmm (0.0-1.2); NEUTROPHIL ABSOLUTE COUNT 3.9 tho/cmm (1.6-8.0); NEUTROPHIL-AUTOMATED 3.9 tho/cmm (1.6-8.0); NEUTROPHILS % 61.7 % (40-80); PLATELET COUNT 156 tho/cmm (150-450); RED CELL DISTRIBUTION WIDTH 16.4 % (12.4-16.4); WHITE BLOOD COUNT 6.3 tho/cmm (4.0-10.0)
[2016-12-29 13:26] LABS: ANION GAP 10 mmol/L (0-20); BLOOD UREA NITROGEN 18 mg/dl (6-24); CALCIUM 8.5 mg/dl (8.5-10.5); CARBON DIOXIDE-VENOUS 31 mmol/L (22-32); CHLORIDE 104 mmol/l (96-110); GLUCOSE 118 mg/dL (70-110); POTASSIUM 3.9 mmol/L (3.7-5.1); SODIUM 141 mmol/L (135-145); eGFR VALUE FOR BLACK >90 mL/Min
[2017-01-31 18:20] LABS: URINE BILIRUBIN NEGATIVE (NEG); URINE BLOOD LARGE (NEG); URINE GLUCOSE (UA) NEGATIVE (NEG); URINE KETONE NEGATIVE (NEG); URINE LEUKOCYTE ESTERASE POSITIVE (NEG); URINE NITRITE POSITIVE (NEG); URINE PROTEIN LARGE (NEG); URINE SPECIFIC GRAVITY 1.015 (1.003-1.030)
[2017-01-31 18:22] LABS: URINE APPEARANCE CLOUDY; URINE COLOR YELLOW
[2017-01-31 18:27] LABS: URINE RBC 60-80 /[HPF] (0-5); URINE WBC 15-20 /[HPF] (0-5)
[2017-01-31 18:28] LABS: URINE AMORPHOUS 3+; URINE BACTERIA 2+
[2017-02-03 05:07] LABS: BASO % 0.2 % (0-2); EOS % 3.4 % (0-7); EOSINOPHIL ABSOLUTE COUNT 0.2 tho/cmm (0.0-0.7); HCT-HEMATOCRIT 38.4 % (36.0-53.5); HGB-HEMOGLOBIN 12.1 gm/dl (13.5-17.0); IMMATURE GRANULOCYTES ABSOLUTE 0.01 tho/cmm (0-0.03); IMMATURE GRANULOCYTES PERCENT 0.2 % (0-0.3); LYMPH % 25.6 % (20-45); LYMPH ABSOLUTE COUNT 1.7 tho/cmm (0.8-4.5); MCH (MEAN CORPUSCULAR HGB) 27.4 pg (28.0-32.0); MCHC MEAN CORPUSCULAR HGB CONC 31.5 % (32.0-36.0); MCV (MEAN CELL VOLUME) 86.9 fl (82.0-96.0); MEAN PLATELET VOLUME 10.4 cmc (9.4-12.4); MONO % 6.8 % (0-12); MONOCYTE ABSOLUTE COUNT 0.4 tho/cmm (0.0-1.2); NEUTROPHIL ABSOLUTE COUNT 4.1 tho/cmm (1.6-8.0); NEUTROPHIL-AUTOMATED 4.1 tho/cmm (1.6-8.0); NEUTROPHILS % 63.8 % (40-80); PLATELET COUNT 208 tho/cmm (150-450); RED BLOOD COUNT 4.42 mil/cmm (4.40-5.70); RED CELL DISTRIBUTION WIDTH 16.3 % (12.4-16.4); WHITE BLOOD COUNT 6.5 tho/cmm (4.0-10.0)
[2017-02-03 05:16] LABS: ANION GAP 10 mmol/L (0-20); BLOOD UREA NITROGEN 16 mg/dl (6-24); CALCIUM 8.3 mg/dl (8.5-10.5); CARBON DIOXIDE-VENOUS 33 mmol/L (22-32); CHLORIDE 100 mmol/l (96-110); CREATININE 0.79 mg/dl (0.60-1.30); GLUCOSE 136 mg/dL (70-110); POTASSIUM 3.8 mmol/L (3.7-5.1); SODIUM 139 mmol/L (135-145); eGFR VALUE FOR BLACK >90 mL/Min
[2017-02-04 05:29] LABS: BASO % 0.3 % (0-2); EOS % 4.5 % (0-7); EOSINOPHIL ABSOLUTE COUNT 0.3 tho/cmm (0.0-0.7); HGB-HEMOGLOBIN 11.8 gm/dl (13.5-17.0); IMMATURE GRANULOCYTES ABSOLUTE 0.02 tho/cmm (0-0.03); IMMATURE GRANULOCYTES PERCENT 0.3 % (0-0.3); LYMPH % 29.9 % (20-45); LYMPH ABSOLUTE COUNT 1.8 tho/cmm (0.8-4.5); MCH (MEAN CORPUSCULAR HGB) 27.4 pg (28.0-32.0); MCHC MEAN CORPUSCULAR HGB CONC 31.9 % (32.0-36.0); MEAN PLATELET VOLUME 9.5 cmc (9.4-12.4); MONO % 8.4 % (0-12); MONOCYTE ABSOLUTE COUNT 0.5 tho/cmm (0.0-1.2); NEUTROPHIL ABSOLUTE COUNT 3.4 tho/cmm (1.6-8.0); NEUTROPHIL-AUTOMATED 3.4 tho/cmm (1.6-8.0); NEUTROPHILS % 56.6 % (40-80); PLATELET COUNT 185 tho/cmm (150-450); RED CELL DISTRIBUTION WIDTH 16.4 % (12.4-16.4)
[2017-02-04 06:03] LABS: ANION GAP 12 mmol/L (0-20); BLOOD UREA NITROGEN 16 mg/dl (6-24); CALCIUM 8.5 mg/dl (8.5-10.5); CARBON DIOXIDE-VENOUS 30 mmol/L (22-32); CHLORIDE 101 mmol/l (96-110); GLUCOSE 126 mg/dL (70-110); POTASSIUM 3.8 mmol/L (3.7-5.1); SODIUM 139 mmol/L (135-145)
[2017-02-04 06:05] LABS: CREATININE 0.82 mg/dl (0.60-1.30); eGFR VALUE FOR BLACK >90 mL/Min
[2017-02-13] MEDS ORDERED: GLYCERIN1 EAC1 PR (09:39)
[2017-02-13] MEDS ORDERED: ISOPTO TEARS15 M1 EACH EYE (09:40)
[2017-02-13] MEDS ORDERED: DULCOLAX10 MG PR (09:41)
[2017-02-13] MEDS ORDERED: LOVENOX40 MG/0.1 SC (10:11)
[2017-02-13] MEDS ORDERED: ATROPINE 0.01%-10 ML SL (10:11)
[2017-02-13] MEDS ORDERED: IPRAT-ALBUT 0.5-3 ML IPV (10:12)
[2017-02-13] MEDS ORDERED: COMBIVENT RESPIM4 G1 IPV (10:13)
[2017-02-13] MEDS ORDERED: GUAIFENESIN AC473 ML GT (10:15)
[2017-02-13] MEDS ORDERED: LASIX40 M1 GT (10:15)
== END 2017-02-13 11:20 | DRG 698 ==
LOC: EDMED 11:01 → EMR2 15:18 → PCUB 15:56 → 5WD 06-25 10:10 → CCU 07-08 17:33 → 5WE 07-10 15:55 → ORW 09-21 12:30 → PACU 09-21 13:30 → 5WE 09-21 14:10
PROVIDERS: Emergency Medicine; Family Medicine; Internal Medicine; Internal Medicine Cardiovascular Disease; Nurse Practitioner; Physician Assistant; Psychiatry & Neurology Neurology; Registered Nurse; ADMIT Hospitalist
PROC: 5A09357 Assistance with Respiratory Ventilation, Less than 24 Consecutive Hours, Continuous Positive Airway Pressure (ICD-10-PCS; 2016-07-08)
PROC: 0B21XFZ Change Tracheostomy Device in Trachea, External Approach (ICD-10-PCS; 2016-08-30)
PROC: 0D20XUZ Change Feeding Device in Upper Intestinal Tract, External Approach (ICD-10-PCS; 2016-09-15)
PROC: 0T9B30Z Drainage of Bladder with Drainage Device, Percutaneous Approach (ICD-10-PCS; principal; 2016-09-21)
PROC: 0TJB8ZZ Inspection of Bladder, Via Natural or Artificial Opening Endoscopic (ICD-10-PCS; 2016-09-21)
PROC: 05H633Z Insertion of Infusion Device into Left Subclavian Vein, Percutaneous Approach (ICD-10-PCS; 2016-11-27)
PROC: 0HDRXZZ Extraction of Toe Nail, External Approach (ICD-10-PCS; 2016-12-08)
DX: T83.511A Infection and inflammatory reaction due to indwelling urethral catheter, initial encounter (principal); A41.51 Sepsis due to Escherichia coli [E. coli]; J96.22 Acute and chronic respiratory failure with hypercapnia; J69.0 Pneumonitis due to inhalation of food and vomit; R40.3 Persistent vegetative state; J96.11 Chronic respiratory failure with hypoxia; E87.0 Hyperosmolality and hypernatremia; L89.102 Pressure ulcer of unspecified part of back, stage 2; L89.153 Pressure ulcer of sacral region, stage 3; R65.20 Severe sepsis without septic shock; J98.11 Atelectasis; B96.20 Unspecified Escherichia coli [E. coli] as the cause of diseases classified elsewhere; Z16.12 Extended spectrum beta lactamase (ESBL) resistance; Z87.820 Personal history of traumatic brain injury; I10 Essential (primary) hypertension; Z86.718 Personal history of other venous thrombosis and embolism; Z79.01 Long term (current) use of anticoagulants; E11.9 Type 2 diabetes mellitus without complications; Z93.0 Tracheostomy status; Z66 Do not resuscitate; I25.5 Ischemic cardiomyopathy; Z95.0 Presence of cardiac pacemaker; Z79.4 Long term (current) use of insulin; R06.81 Apnea, not elsewhere classified; I51.7 Cardiomegaly; Z98.2 Presence of cerebrospinal fluid drainage device; Z88.5 Allergy status to narcotic agent; G93.89 Other specified disorders of brain; N31.9 Neuromuscular dysfunction of bladder, unspecified; K94.29 Other complications of gastrostomy; E87.6 Hypokalemia; L98.9 Disorder of the skin and subcutaneous tissue, unspecified; D50.9 Iron deficiency anemia, unspecified; E87.70 Fluid overload, unspecified; R13.10 Dysphagia, unspecified; L60.0 Ingrowing nail; B95.62 Methicillin resistant Staphylococcus aureus infection as the cause of diseases classified elsewhere; R56.9 Unspecified convulsions
CPT/HCPCS: C1751; C1769; C1892; G0008; G0009; J1650; J1815; J1940; J1953; J1956; J2543; J3370; J3411; J3480; J7030; J7050; J7999; Q9967